=== PATIENT | male | born 1950 | race Caucasian/White ===

== ENCOUNTER 2016-09-23 02:30 | Inpatient (IN) | payer MEDICARE, OTHER ==
[~2016-09-23] VITALS: Ht 185.4 cm; Wt 83.9 kg
[~2016-09-23 02:30] MED LIST: AGGRENOX 200/251 CAP PO; CYCLOBENZAPRINE10 MG PO; DULERA 100 MCG8.8 GM INH; DULERA 200 MCG8.8 GM INH; IPRAT-ALBUT 0.5-3 ML UPD; K-TAB10 MEQ PO; LASIX20 MG PO; LEVAQUIN PREMI750 MG PO; LEVAQUIN750 MG PO; METOPROLOL TART50 MG PO; MOBIC7.5 MG PO; MUCINEX D1 TAB.SR . PO; NORVASC5 MG PO; SINGULAIR10 MG PO; VERAPAMIL ER P200 MG PO; ZESTRIL20 MG PO
[2016-09-23 02:58] LABS: BASOPHILS 0.1 % (0.0-2.0); EOSINOPHILS 0.5 % (0-7); HEMATOCRIT 37.9 % (42.0-54.0); HEMOGLOBIN 12.4 g/dL (13.5-17.5); IMMATURE GRANULOCYTES 0.4 % (0-5); LYMPHOCYTES 14.2 % (15-50); MCH 32.2 pg (26.0-34.0); MCHC 32.7 g/dL (31.0-37.0); MCV 98.4 fL (80.0-100.0); MEAN PLATELET VOLUME 11.9 fL (7.4-10.4); MONOCYTES 12.8 % (2-11); RBC 3.85 10x6/uL (4.20-6.10); WBC 11.8 10x3/uL (4.8-10.8)
[2016-09-23 03:04] LABS: PLATELET COUNT 185 10x3/uL (130-400)
[2016-09-23 03:10] LABS: ALKALINE PHOSPHATASE 95 U/L (46-116); ALT (SGPT) 30 U/L (10-68); BILIRUBIN - TOTAL 0.47 mg/dL (0.2-1.3); CALC OSMOLALITY 278 mosm/kg (275-300); CALCIUM 9.7 mg/dL (8.5-10.1); CARBON DIOXIDE 28.8 mmol/L (21.0-32.0); CHLORIDE - SERUM 101 mmol/L (98-107); CREATININE - SERUM 1.1 mg/dL (0.6-1.3); GLUCOSE 139 mg/dL (74-106); POTASSIUM - SERUM 3.7 mmol/L (3.5-5.1); SODIUM 139 mmol/L (136-145); UREA NITROGEN 10 mg/dL (7-18); eGFR NON AFRICAN AMERICAN 71 mL/min (90-120)
[2016-09-23 03:14] LABS: AMYLASE - SERUM 25 U/L (25-115); CREATINE KINASE 30 UL (21-232); LIPASE 74 U/L (73-393)
[2016-09-23 03:17] LABS: TROPONIN-I < 0.017 ng/mL (0.000-0.060)
--- NOTE | 2016-09-23 07:49 | NUR ---
PT REPORT REC'D FROM KRISTAL DOLAN, IN ER. ROOM READY AND AWAITING PT ARRIVAL.
--- NOTE | 2016-09-23 08:00 | NUR ---
PT REC'D TO ROOM VIA WC, ACCOMPANIED BY STAFF, ABLE TO AMBULATE AROUND ROOM W/O ASSISTANCE. AAOX4. CURRENTLY ON 2L O2 VIA NC. STATES HE WEARS O2 AT HOME PRN. O2 SAT 97%. LUNG SOUNDS CLEAR AND EQUAL BILATERALLY. ABD DISTENDED, BOWEL SOUNDS HYPOACTIVE, FIRM TO PALPATION, AND GUARDING UPON PALPATION. RATING CURRENT PAIN IN ABD 10/10. 1MG IV DILAUDID Q4HR ORDERED AND WILL ADMINISTER. BED LOW, CALL LIGHT IN REACH, DENIES NEEDS.
--- NOTE | 2016-09-23 08:45 | NUR ---
PT CALLING OUT IN PAIN. RATING CURRENT PAIN IN ABD /. 1MG IV DILAUDID ADMINISTERED PER PAIN. WILL REASSESS. PT FLUSHED, SWEATING, AND ABD HARD. PT UP WALKING AROUND ROOM. INSTRUCTED PT TO SIT DOWN AND TAKE SLOW DEEP BREATHES. PT ABLE TO FOLLOW. COMMANDS. IN ROOM. BED LOW, CALL LIGHT IN REACH, WILL REASSESS.
[2016-09-23 09:30] VITALS: BP 167/81
--- NOTE | 2016-09-23 10:46 | NUR ---
ALERTED BY THAT PT IS, "STARTING TO HURT AGAIN AND IS ABOUT TO START SCREAMING AGAIN." EXPLAINED TO PT THAT PT CAN ONLY HAVE PAIN MEDICINE ORDERED Q4HR AND HE COULD HAVE IT AGAIN AT 1245. TOLD THAT I WOULD ALSO TRY TO KEEP IT CLOSE TO EVERY 4 HOURS POSSIBLE.
[2016-09-23 11:48] VITALS: BP 167/81; Ht 185.4 cm; Wt 83.9 kg
[2016-09-23 12:42] VITALS: BP 141/66
--- NOTE | 2016-09-23 12:57 | NUR ---
MORNING MEDS CONT BY DR. BOLANOS. CONT MEDS PASSED AT THIS TIME. 1 MG IV DILAUDID ADMINISTERED PER 06/12 ABD PAIN. IV ZOSYN HUNG AT THIS TIME. PUT UP IN CHAIR AT BEDSIDE. WILL REASSESS. CPOC.
[2016-09-23 17:03] VITALS: BP 142/69
[2016-09-23 20:00] VITALS: BP 147/71
--- NOTE | 2016-09-23 20:15 | NUR ---
PATIENT VERY AGITATIED. ATTEMPTING TO TAKE OUT IV AND GO HOME. CONFUSED. DISORIENTED TO TIME AND SITUATION. ATTEMPTS TO REORIENT UNSUCCESSFUL. PRN ATIVAN GIVEN. PATIENT ASSISTED TO BED. GAUDENCIO MAT ON. AT BEDSIDE. BED LOW. CALL LIGHT IN REACH.
--- NOTE | 2016-09-23 22:00 | NUR ---
PATIENT CONFUSED AND TRYING TO CLIMB OUT OF BED WITHOUT ASSISTANCE. PATIENT PUT BACK TO BED ON A GAUDENCIO ALARM BY ISAIAS.
[2016-09-24] VITALS: BP 124/63
[2016-09-24 04:00] VITALS: BP 140/69
[2016-09-24 06:24] LABS: BASOPHILS 0.4 % (0.0-2.0); EOSINOPHILS 0.4 % (0-7); HEMATOCRIT 31.5 % (42.0-54.0); HEMOGLOBIN 10.3 g/dL (13.5-17.5); IMMATURE GRANULOCYTES 0.5 % (0-5); LYMPHOCYTES 5.9 % (15-50); MCH 31.5 pg (26.0-34.0); MCHC 32.7 g/dL (31.0-37.0); MEAN PLATELET VOLUME 10.7 fL (7.4-10.4); MONOCYTES 6.9 % (2-11); NEUTROPHILS 85.9 % (40-80); PLATELET COUNT 180 10x3/uL (130-400); RBC 3.27 10x6/uL (4.20-6.10); WBC 9.6 10x3/uL (4.8-10.8)
[2016-09-24 06:27] LABS: MCV 96.3 fL (80.0-100.0)
[2016-09-24 06:52] LABS: ANION GAP 14.1 mmol/L (8-16); BILIRUBIN - TOTAL 0.8 mg/dL (0.2-1.3); CALCIUM 8.4 mg/dL (8.5-10.1); CARBON DIOXIDE 24.9 mmol/L (21.0-32.0); CREATININE - SERUM 1.2 mg/dL (0.6-1.3); PROTEIN - SERUM 6.2 g/dL (6.4-8.2)
[2016-09-24 06:53] LABS: ALBUMIN 2.1 g/dL (3.4-5.0)
--- NOTE | 2016-09-24 07:38 | NUR ---
PATIENT IS SITTING UP ON THE SIDE OF BED WITH HIS AT THE BEDSIDE. PATIENT IS AWAKE, ALERT, AND DISORIENTED TO PLACE AND SITUATION. GAUDENCIO MAT ALARM IN PLACE. VERBALIZED TO PATIENT AND PATIENT'S THAT HE IS A FALL RISK AND THAT THE GAUDENCIO MAT IS FOR HIS PATIENT SAFETY. PATIENT AND VERBALIZED UNDERSTANDING. PATIENT DENIES ANY NEEDS AT PRESENT TIME. CALL LIGHT IN REACH. WILL MONITOR.
--- NOTE | 2016-09-24 08:14 | NUR ---
PATIENT SITTING UP ON SIDE OF THE BED. WITH PATIENT. ASSESSMENT COMPLETED PER FLOWSHEET. PATIENT IS AWAKE, ALERT, AND ORIENTED TO HIS NAME AND BIRTHDATE BUT HE IS DISORIENTED TO PLACE, TIME, AND SITUATION. COMPLAINS OF PAIN IN HIS ABDOMEN. PATIENT RATES PAIN LEVEL AN "8" ON A 0-10 SCALE. PATIENT'S ABDOMEN IS FIRM AND DISTENDED AND VERY TENDER TO TOUCH. SCHEDULED MORNING MEDICATIONS GIVEN TO PATIENT. PATIENT TOLERATED WELL. PATIENT DENIES ANY NEEDS AT PRESENT TIME. CALL LIGHT IN PATIENT'S REACH. GAUDENCIO MAT IN PLACE. WILL MONITOR PATIENT.
[2016-09-24 08:25] VITALS: BP 155/79
[2016-09-24 12:48] VITALS: BP 145/68
[2016-09-24 16:24] VITALS: BP 141/70
[2016-09-24 19:00] VITALS: BP 132/69
--- NOTE | 2016-09-24 19:25 | NUR ---
RECIEVED SHIFT REPORT. PT IS LYING IN BED. ALERT AND ORIENTED AND ABLE TO VERBALIZE NEEDS. IV IS PATENT AND FLUIDS ARE RUNNING PER ORDER. O2 @ 2 PER NASAL CANNULA. PT IS AMBULATORY WITH ASSISTANCE. PT STATES PAIN IS 9/10. NO NEEDS ARE VERBALIZED AT THIS TIME. WILL CONTINUE TO MONITOR. SIDE RAILS ARE UPX 2. BED IS IN LOWEST POSITION. GAUDENCIO ON FOR SAFETY. CALL LIGHT IS WITHIN REACH.
--- NOTE | 2016-09-24 21:07 | NUR ---
SHIFT ASSESSMENT COMPLETED. NIGHT MEDS GIVEN WITH NO PROBLEMS. NO NEEDS ARE VOICED. WILL MONITOR. SIDE RAILS X 2. BED LOW. GAUDENCIO ON. CALL LIGHT IN REACH.
[2016-09-25] VITALS: BP 130/62
[2016-09-25 04:00] VITALS: BP 141/79
[2016-09-25 05:44] LABS: BASOPHILS 0.2 % (0.0-2.0); EOSINOPHILS 0.8 % (0-7); HEMATOCRIT 32.5 % (42.0-54.0); HEMOGLOBIN 10.5 g/dL (13.5-17.5); IMMATURE GRANULOCYTES 1.1 % (0-5); LYMPHOCYTES 6.3 % (15-50); MCH 31.3 pg (26.0-34.0); MCHC 32.3 g/dL (31.0-37.0); MONOCYTES 7.6 % (2-11); RBC 3.35 10x6/uL (4.20-6.10); RDW 13.3 % (11.5-14.5)
[2016-09-25 06:11] LABS: PLATELET COUNT 228 10x3/uL (130-400); WBC 12.3 10x3/uL (4.8-10.8)
[2016-09-25 06:35] LABS: ALBUMIN 1.9 g/dL (3.4-5.0); ANION GAP 12.8 mmol/L (8-16); BILIRUBIN - TOTAL 0.8 mg/dL (0.2-1.3); CALCIUM 8.2 mg/dL (8.5-10.1); CARBON DIOXIDE 25.9 mmol/L (21.0-32.0); CREATININE - SERUM 1.2 mg/dL (0.6-1.3); POTASSIUM - SERUM 3.7 mmol/L (3.5-5.1); PROTEIN - SERUM 6.3 g/dL (6.4-8.2)
--- NOTE | 2016-09-25 07:53 | NUR ---
GAVE PATIENT A URINAL FOR A URINE SAMPLE. PATIENT STATED HE JUST URINATED SO DOES NOT KNOW WHEN HE WILL GO AGAIN. EXPLAINED TO USE URINAL NEXT TIME URINATE AND PUSH CALL LIGHT.
[2016-09-25 08:47] VITALS: BP 143/67
[2016-09-25 12:38] VITALS: BP 149/67
--- NOTE | 2016-09-25 16:17 | NUR ---
Patient Name: ALISHA GIRON Admission Status: ER Accout number: [id number] Admission Date: 09-23-2016 : 1950 Admission Diagnosis: Attending: FILIBERTO Current LOS: 2 Anticipated DC Date: 09-25-2016 Planned Disposition: Home Primary Insurance: MEDICARE A & B Discharge Planning Comments: CM MET WITH PATIENT AND SPOUSE (XIOMARA) REGARDING D/C PLANS AND NEEDS. PATIENT HAS 2 STEPS W/O RAILS AND NO STAIRS INSIDE. PATIENT IS INDEPENDENT WITH HIS CARE AND HAS ONLY A CANE AT HOME. PATIENTS PCP IS DR. WOODARD AND PHARMACY IS [facility]. PATIENT HAS DENIED HOME HEALTH OR ANY NEEDS FOR DISCHARGE. PATIENTS IS DRIVING HIM HOME TODAY. CM WILL CONTINUE TO FOLLOW PATIENT WITH D/C NEEDS AND PLANS. PCP DR. WOODARD [facility] [phone] XIOM[place] () [phone] Passenger Service Agent: Bev Wilkins
--- NOTE | 2016-09-25 16:18 | NUR ---
Is the patient Alert and Oriented? Yes 0 * How many steps to enter\exit or inside your home? 2 W/O RAIL 0 * PCP DR. WOODARD 0 * Pharmacy [facility] 0 * Preadmission Environment Home with Family 0 * ADLs Independent 0 * Equipment Cane 0 * List name and contact numbers for known caregivers / representatives who currently or will assist patient after discharge: XIOMARA [phone] * Community resources currently utilized None 0 * Additional services required to return to the preadmission environment? Yes 0 * Can the patient safely return to the preadmission environment? Yes 0 * Has this patient been hospitalized within the prior 30 days at any hospital? No 0 Grand Total: 0
[2016-09-25 17:13] VITALS: BP 147/67
[2016-09-25 19:00] VITALS: BP 126/66
--- NOTE | 2016-09-25 19:35 | NUR ---
RECIEVED SHIFT REPORT. PT IS LYING IN BED. ALERT AND ORIENTED AND ABLE TO VERBALIZE NEEDS. IV IS PATENT AND FLUIDS ARE RUNNING PER ORDER. O2 @ 2 PER NASAL CANNULA. PT IS AMBULATORY BUT WAS INSTRUCTED TO CALL FOR ANY ASSISTANCE NEEDED. PT STATES PAIN IS 9/10. NO NEEDS ARE VERBALIZED AT THIS TIME. WILL CONTINUE TO MONITOR. SIDE RAILS ARE UP X 2. BED IS IN LOWEST POSITION. CALL LIGHT IS WITHIN REACH.
--- NOTE | 2016-09-25 21:59 | NUR ---
SHIFT ASSESSMENT COMPLETED. NIGHT MEDS GIVEN WITH NO PROBLEMS. PT C/O PAIN 05/13. ADMINISTERED PRESCRIBED PRN DILAUDID PER ORDER. DENIES FURTHER NEEDS. WILL MONITOR. SIDE RAILS X 2. BED LOW. CALL LIGHT IN REACH.
--- NOTE | 2016-09-25 22:15 | NUR ---
PT STATES HE STILL IS HAVING THE URGE TO HAVE A BOWEL MOVEMENT AND STILL FELLS A BUNCH OF PRESSURE. PT REQUESTING IN CALL MD TRAVEL REGISTERED NURSE ONCOLOGY TO ASK FOR ORDER FOR ENEMA OR SUPPOSITORY. WILL CALL MD ON RAY.
--- NOTE | 2016-09-25 22:20 | NUR ---
CALL RECIEVED BACK FROM MD LINE LOCATOR AND NEW ORDERS RECIEVED.
[2016-09-26] VITALS (12 sets, daily range): BP systolic 118–155; BP diastolic 57–80
[2016-09-26 05:51] LABS: BASOPHILS 0.4 % (0.0-2.0); EOSINOPHILS 1.5 % (0-7); HEMATOCRIT 33.6 % (42.0-54.0); HEMOGLOBIN 10.9 g/dL (13.5-17.5); IMMATURE GRANULOCYTES 1.8 % (0-5); LYMPHOCYTES 7.1 % (15-50); MCH 31.5 pg (26.0-34.0); MCHC 32.4 g/dL (31.0-37.0); MCV 97.1 fL (80.0-100.0); MEAN PLATELET VOLUME 11.4 fL (7.4-10.4); MONOCYTES 10.2 % (2-11); PLATELET COUNT 296 10x3/uL (130-400); RBC 3.46 10x6/uL (4.20-6.10); RDW 13.4 % (11.5-14.5); WBC 14.6 10x3/uL (4.8-10.8)
[2016-09-26 06:02] LABS: ANION GAP 13.2 mmol/L (8-16); CALCIUM 8.5 mg/dL (8.5-10.1); CARBON DIOXIDE 26.4 mmol/L (21.0-32.0); CREATININE - SERUM 1.1 mg/dL (0.6-1.3); POTASSIUM - SERUM 3.6 mmol/L (3.5-5.1)
--- NOTE | 2016-09-26 10:25 | NUR ---
LARGE AREAS OF MACULAR RASH-LIKE REDNESS TO CHEST AND ABDOMEN
--- NOTE | 2016-09-26 11:22 | NUR ---
EMPTIED 140ML FROM DAYANA DRAIN TO RIGHT FLANK
--- NOTE | 2016-09-26 12:50 | NUR ---
PATIENT AROUSED, HOLDING HANDS IN THE AIR GRABBING. PATIENT GRABBED WIFES HANDS AND ARMS, HE GRABBED 'S WRIST AND SQUEEZED HARD, CAUSING PAIN TO . AND MYSELF TRIED TO GET PATIENT TO LET GO, HE KEPT SQUEEZING, ALERTING MORE STAFF FOR HELP. THEY WERE ABLE TO GET HIM TO LET GO. PATIENT WOULD NOT TALK, ANSWER QUESTIONS, OR FOLLOW COMMAND. ANOTHER NURSE AND PATIENT'S WERE ABLE TO TALK TO PATIENT AND GET HIM TO CALM DOWN. PATIENT STARTED TALKING, DISORIENTED. PATIENT STATED HE DID NOT KNOW WHO HIS IS.
--- NOTE | 2016-09-26 13:06 | NUR ---
PATIENT NOW CALM AND DROWSY. IS AT BEDSIDE. BED ALARM ON. WILL CONTINUE TO MONITOR. KRISTAL MOSHER FROM PACU CAME OVER TO GIVE VERSED, I TOLD HER HE IS NOW CALM SO NOT TO ADMINISTER AT THIS TIME.
--- NOTE | 2016-09-26 13:14 | NUR ---
ENCOURAGED TO STAY WITH PATIENT AND NOT STIMULATE.
--- NOTE | 2016-09-26 13:46 | OP ---
PATIENT NAME: ALISHA GIRON MEDICAL RECORD: [id number] :[birth year] LOCATION:[id number] ADMISSION DATE:09/23/16 SURGEON: CALI BOLANOS MD DATE OF OPERATION: 09/26/2016 PREOPERATIVE DIAGNOSES: 1. Acute cholecystitis. 2. Fibromyalgia. 3. Emphysema. 4. Obstructive sleep apnea. 5. Degenerative disc disease. 6. Tobacco dependence syndrome. 7. Hypertension. POSTOPERATIVE DIAGNOSES: 1. Acute cholecystitis. 2. Fibromyalgia. 3. Emphysema. 4. Obstructive sleep apnea. 5. Degenerative disc disease. 6. Tobacco dependence syndrome. 7. Hypertension. 8. Bile peritonitis surgery. PROCEDURE: Laparoscopic cholecystectomy with abdominal washout. SURGEON: Cali Bolanos MD REPORT OF PROCEDURE: The patient's abdomen was prepped and draped in sterile fashion. A cutdown was made on the superior aspect of the umbilicus and electrocautery was used to dissect through the subcutaneous tissues, 0 Vicryls were placed in the fascia bilaterally and the fascia was incised with a 15 blade. There was immediately a spillage of bilious material from the abdominal cavity. A 12-mm Ketan was then inserted and the abdomen was insufflated. Under direct visualization, a 5 mm trocar was placed in the epigastrium. Using this, I was able to take down some inflammatory adhesions on the right side of the abdomen; there was a large amount of bilious material present in the right pericolic gutter and extending down in the pelvis. I tried to irrigate it out as much of this as I could. This extended over the patient's liver and to the right subphrenic space. Once I had this freed up, then 2 more 5-mm trocars were placed in the right subcostal region. It was difficult to dissect out the gallbladder did a large amount of inflammatory tissue, so a fourth 5-mm trocar was placed in the right lateral subcostal region. With this, I was able to dissect out the patient's gallbladder and could immediately see on the fundus of the gallbladder where there was necrotic area where the perforation had occurred. The patient had no stones visible and this appeared to be more of an acute acalculous cholecystitis. The cystic artery and cystic duct were eventually dissected free and these were clipped proximally and distally and ligated in standard fashion. The gallbladder was taken off the liver bed using electrocautery and placed into an Endo Catch bag. Any bleeding from the liver bed was then treated with electrocautery. At this point, we did some more vigorous irrigation into the patient's abdomen, especially in the pelvis and right pericolic gutter. We tried to remove any bilious contents that were visible. There was some fibrinous exudate throughout the abdomen, which was removed as much as could be done. At the conclusion of the case, a 15-Frisian OPERATIVE REPORT [id number] ALISHA GIRON drain was inserted in the abdomen through the most lateral right subcostal incision site. This was placed in the gallbladder fossa at the base of the liver bed. At this point, this was sutured into place with a 2-0 nylon. The ports and insufflation were then removed and the gallbladder was taken out through the umbilicus. The umbilical fascia was closed with interrupted 0 Vicryls times 4. The wounds were irrigated out with normal saline and infused with 10 mL of 0.25% Marcaine with epinephrine. The skin incisions were all closed with subcutaneous 5-0 Monocryl and dressed appropriately. COMPLICATIONS: None. CONDITION: Stable. ANESTHESIA: General endotracheal and local. BLOOD LOSS: 50 mL. TRANSINT:[id number] Voice Confirmation ID: [id number] DOCUMENT ID: [id number] CALI BOLANOS MD at 1346 CC: GREGORY WOODARD MD [id number] DICTATION DATE: 09/26/16 1059 DATA EXAMINATION CLERK: 09/26/16 1118 ADM IN [facility] [address] [place] [address]
--- NOTE | 2016-09-26 14:11 | NUR ---
NUTRITION MONITORING & EVAL PT S/P SURGERY. CLEAR LIQUID DIET STARTED. WILL MONITOR DIET ADVANCEMENT, PROGRESS. RD FOLLOWING
--- NOTE | 2016-09-26 15:00 | NUR ---
WIFED YELLED FOR HELP, RAN TO ROOM, PATIENT STOOD UP OUT OF BED. ASKED PATIENT TO GET BACK IN BED, PATIENT STATED "NO!" PATIENT HELD DAYANA DRAIN IN HAND A SWUNG IT AROUND TRYING TO HIT STAFF. CALLED KRISTAL MOSHER IN PACU AND ASKED IF SHE COULD ADMINISTER VERSED. SHE STATED YES. PATIENT STATED "I NEED TO PEE." GAVE PATIENT A URINAL. HE VOIDED.
--- NOTE | 2016-09-26 15:21 | NUR ---
PATIENT NOW RESTING QUIETLY WITH EYES CLOSED.
--- NOTE | 2016-09-26 19:07 | NUR ---
PATIENT RESTING QUIETLY WITH EYES CLOSED. NO SIGNS OF DISTRESS NOTED. PATIENT IS WEARING OXYGEN VIA NASAL CANNULA AT 2L/MIN.
[2016-09-27] VITALS: BP 132/48
--- NOTE | 2016-09-27 00:08 | NUR ---
RESTING EYES CLOSED, RESP WITH EASE, AT BEDSIDE, CL IN REACH
[2016-09-27 04:00] VITALS: BP 241/67
[2016-09-27 06:50] LABS: BASOPHILS 0.6 % (0.0-2.0); EOSINOPHILS 0.1 % (0-7); HEMOGLOBIN 10.5 g/dL (13.5-17.5); IMMATURE GRANULOCYTES 5.3 % (0-5); MCH 30.8 pg (26.0-34.0); MCHC 31.8 g/dL (31.0-37.0); MCV 96.8 fL (80.0-100.0); MONOCYTES 7.7 % (2-11); NEUTROPHILS 79.3 % (40-80); PLATELET COUNT 260 10x3/uL (130-400); RBC 3.41 10x6/uL (4.20-6.10); RDW 13.6 % (11.5-14.5); WBC 13.5 10x3/uL (4.8-10.8)
[2016-09-27 07:08] LABS: ALBUMIN 1.8 g/dL (3.4-5.0); ANION GAP 10.1 mmol/L (8-16); BILIRUBIN - TOTAL 0.5 mg/dL (0.2-1.3); CALCIUM 8.4 mg/dL (8.5-10.1); CARBON DIOXIDE 28.4 mmol/L (21.0-32.0); CREATININE - SERUM 1.1 mg/dL (0.6-1.3); POTASSIUM - SERUM 3.5 mmol/L (3.5-5.1); PROTEIN - SERUM 6.3 g/dL (6.4-8.2)
--- NOTE | 2016-09-27 07:30 | NUR ---
REPORT RECEIVED FROM PIPELINES MANAGER NURSE. CALL LIGHT IN REACH.
[2016-09-27 08:33] VITALS: BP 143/65
--- NOTE | 2016-09-27 08:55 | NUR ---
Resting quietly in bed, eating liquid diet. Some abdominal discomfort, abdomen distended. Drain in place in small amount drainage, abdominal dressings dry and intact. Will ambulate with patient this am. Shaina Azevedo RN
--- NOTE | 2016-09-27 10:32 | NUR ---
ASSESSMENT COMPLETED. AM MEDS ADMINISTERED. DILAUDID ANGLE SHEAR OPERATOR INITIATED. REFUSES SCDs. CALL LIGHT IN REACH. WILL CONTINUE WITH PLAN OF CARE.
--- NOTE | 2016-09-27 10:38 | NUR ---
IV TUBING CHANGED PER HOSPITAL PROTOCOL.
[2016-09-27 11:55] VITALS: BP 140/60
--- NOTE | 2016-09-27 12:30 | NUR ---
DENIES NEEDS AT THIS TIME. CALL LIGHT IN REACH.
--- NOTE | 2016-09-27 13:45 | NUR ---
TORADOL 30 MG SIVP PER ORDER. CALL LIGHT IN REACH.
--- NOTE | 2016-09-27 15:00 | NUR ---
AMBULATED IN HALLWAY WITH PT. TOLERATED WELL.
[2016-09-27 16:53] VITALS: BP 141/66
--- NOTE | 2016-09-27 17:30 | NUR ---
NO DISTRESS NOTED. CALL LIGHT IN REACH.
--- NOTE | 2016-09-27 18:14 | NUR ---
NO CHANGES IN INITIAL ASSESSMENT. CALL LIGHT IN REACH. WILL CONTINUE WITH PLAN OF CARE.
[2016-09-27 19:00] VITALS: BP 138/65
--- NOTE | 2016-09-27 20:36 | NUR ---
PATIENT RESTING IN BED WATCHING TV. ALERT AND ORIENTED. NO SIGNS OF DISTRESS NOTED. SCHEDULED MEDICATIONS GIVEN ORDERED. DENIES ANY NEEDS AT THIS TIME. BED LOW. CALL LIGHT IN REACH.
[2016-09-28] VITALS: BP 134/65
[2016-09-28 04:00] VITALS: BP 163/59
--- NOTE | 2016-09-28 04:37 | NUR ---
PT IS UP TO THE BATHROOM AD TEJAS AND THE NURSE IS AT THE BEDSIDE. NO DISTRESS NOTED AND THE BED IS LOW, RAILS UP X'S 2 WITH THE CALL LIGHT AT HAND.
[2016-09-28 06:20] LABS: ALBUMIN 1.7 g/dL (3.4-5.0); ALKALINE PHOSPHATASE 87 U/L (46-116); ALT (SGPT) 64 U/L (10-68); BILIRUBIN - TOTAL 0.34 mg/dL (0.2-1.3); CALC OSMOLALITY 283 mosm/kg (275-300); CALCIUM 8.1 mg/dL (8.5-10.1); CARBON DIOXIDE 26.8 mmol/L (21.0-32.0); CHLORIDE - SERUM 106 mmol/L (98-107); CREATININE - SERUM 0.9 mg/dL (0.6-1.3); GLUCOSE 101 mg/dL (74-106); POTASSIUM - SERUM 3.7 mmol/L (3.5-5.1); SODIUM 142 mmol/L (136-145); UREA NITROGEN 16 mg/dL (7-18); eGFR NON AFRICAN AMERICAN 90 mL/min (90-120)
[2016-09-28 06:23] LABS: BASOPHILS 0.6 % (0.0-2.0); EOSINOPHILS 0.7 % (0-7); HEMATOCRIT 29.3 % (42.0-54.0); HEMOGLOBIN 9.3 g/dL (13.5-17.5); LYMPHOCYTES 13.8 % (15-50); MCH 30.8 pg (26.0-34.0); MCHC 31.7 g/dL (31.0-37.0); MEAN PLATELET VOLUME 11.4 fL (7.4-10.4); MONOCYTES 10.3 % (2-11); NEUTROPHILS 66.6 % (40-80); PLATELET COUNT 248 10x3/uL (130-400); RBC 3.02 10x6/uL (4.20-6.10); RDW 13.7 % (11.5-14.5); WBC 12.1 10x3/uL (4.8-10.8)
[2016-09-28 08:04] VITALS: BP 151/62
--- NOTE | 2016-09-28 08:04 | NUR ---
PT ASSESSMENT COMPLETE AWAKE AND ALERT ORINETED X 3 LUNGS CLEAR BILATERALLY NO ACUTE DISTRESS NOTED VOICES ALL NEEDS TO STAFF PIV INFUSING PER ORDER HAS LAP SITES X 4 TO ABDOMEN NO REDNESS NOTED AMBULATES ADLIB DILAUDID ELECTRONICS TEACHER FOR PAIN CONTROL WILL MONITOR
--- NOTE | 2016-09-28 09:59 | NUR ---
TOOK AM MEDS WITH NO DIFFICULTY NOTED. ENCOURAGED PT TO AMBULATE IN ROOM AND HALLWAYS TO MOVE GAS ABDOMEN TENDER TO PALPATION. DRESSINGS CLEAN X 4 TO LOWER ABDOMEN
--- NOTE | 2016-09-28 10:55 | NUR ---
UP AT BEDSIDE AT THIS TIME. DAYANA DRAIN AND IV PATENT. PT ALERT AND ORIENTED X4. UP WITHOUT ASSIST. USES URINAL TO VOID. SCD'S OFF AT THIS TIME. CALL LIGHT IN REACH, WILL CONTINUE WITH PLAN OF CARE.
--- NOTE | 2016-09-28 11:17 | NUR ---
DRESSING CHANGED TO DAYANA DRAIN SITE.
[2016-09-28 11:43] VITALS: BP 139/53
--- NOTE | 2016-09-28 13:37 | NUR ---
DRESSING CHANGED TO SITE DR BOLANOS IN ROOM NEW ORDERS TO STOP UNDERWRITING SPECIALIST AND SALINE LOCK IV. EMPTIED 140 ML OF SEROSANGUANOUS DRAINAGE FROM DAYANA DRAIN.
[2016-09-28 16:56] VITALS: BP 133/62
[2016-09-28 20:00] VITALS: BP 142/60
[2016-09-29 02:00] VITALS: BP 144/59
[2016-09-29 04:00] VITALS: BP 150/65
--- NOTE | 2016-09-29 08:00 | NUR ---
PT ASSESSMENT COMPLETE NO ACUTE DISTRESS NOTED PT AWAKE AND ALERT ORIENTED X 3 LUNGS CLEAR WITH DIMINISHED BASES NOTED. DAYANA DRAIN NOTED TO RUQ ABDOMEN SOME DISTENTION NOTED TO ABDOMEN WITH TENDERNESS TO PALPATION HAS ACTIVE BOWEL SOUNDS. ENCOURAGED TO AMBULATE AND PASS GAS FOR COMFORT. SL NOTED TO R UPPER ARM
[2016-09-29 08:34] VITALS: BP 154/59
[2016-09-29] MEDS ORDERED: HYDROCODONE-APA1 TAB PO (09:34)
--- NOTE | 2016-09-29 11:00 | NUR ---
HOPEFUL FOR D/C TODAY. DAYANA DRAIN REMAINS PATENT. AT BEDSIDE. ALERT AND ORIENTED X4, CALL LIGHT IN REACH. WILL CONTINUE WITH PLAN OF CARE.
--- NOTE | 2016-09-29 12:16 | NUR ---
DAYANA DRAIN PULLED PER DR BOLANOS ORDER TOLERATED WELL HAD 40 CC SEROSANGUANOUS FLUID IN BULB. COVERED DRAIN SITE WITH GAUZE AND TEGADERM WILL MONITOR PT HAS ORDERS FOR DISCHARGE.
--- NOTE | 2016-09-29 13:58 | NUR ---
Patient Name: ALISHA GIRON Encounter No: [id number] : 1950 Primary Insurance: MEDICARE PART A ONLY Anticipated DC Date: 09-25-2016 Planned Disposition: Home External Planned Provider: : DCP follow-up note: CM revisited with patient and spouse at bedside to discuss discharge planning/needs. Both patient and spouse voiced concern regarding home oxygen and decreasing saturations while patient on exertion. RT currently evaluating patient for home O2. The patient denies the need for additional DME services. Patient's spouse requests home health to "Keep check on him for a little while". CM educated patient and spouse on AUREA-AUREA list given. AUREA signed and placed on patient's chart. CM spoke with "Naomi" at [facility] ([phone]) and referral faxed via [employer]. CM spoke with "Clifton" at [facility] ([phone]) and orders faxed for home oxygen as ordered. [facility] will bring portable oxygen tank to patient's room this afternoon prior to discharge home. CM to follow and assist with discharge planning/needs. Lavonne Gillette RN/CM
--- NOTE | 2016-09-29 14:01 | NUR ---
DC TO HOME PIV D/CD TIP INTACT DISCHARGE INSTRUCTIONS GIVEN
--- NOTE | 2016-11-02 13:01 | DS ---
PATIENT:ALISHA GIRON :[birth year] MEDICAL RECORD: [id number] DISCHARGE SUMMARY ADMISSION DATE: 09/23/16 DISCHARGE DATE: 09/29/16 DATE OF ADMISSION: 09/23/2016 DATE OF DISCHARGE: 09/29/2016 ADMISSION DIAGNOSES: 1. Acute cholecystitis. 2. Hypertension. 3. Chronic obstructive pulmonary disease. 4. Tobacco dependence syndrome. DISCHARGE DIAGNOSES: 1. Acute cholecystitis. 2. Hypertension. 3. Chronic obstructive pulmonary disease. 4. Tobacco dependence syndrome. PROCEDURE: Laparoscopic cholecystectomy on 09/26/2016. CONSULTATIONS: Michael Lora MD REPORT OF HOSPITALIZATION: The patient was admitted to the hospital through the ER with findings of acute cholecystitis. The patient was started on IV antibiotics and allowed the gallbladder to cool over the next couple of days. His abdominal pain did improve significantly over that time and his white count remained elevated. He was taken to the operating room a couple of days later where he underwent a laparoscopic cholecystectomy. At that time, he was found to have mild peritonitis and a small opening in the fundus of the gallbladder where a small area of necrosis was present. We were able to wash out the abdominal cavity and clear out all the bile. Once the patient had the surgery done began to improve slowly over the next couple of days. He had a drain in place, which showed no sign of any bile postoperatively. He was maintained on antibiotics postoperatively. His pain was better controlled. Once his pain was felt to be well controlled and he was tolerating a diet, then he was felt to be stable for discharge home. DISCHARGE INSTRUCTIONS: Return to clinic or call with any questions or concerns, fevers, chills, nausea or vomiting. ACTIVITIES: No heavy lifting or straining for 2 weeks postoperatively. FOLLOWUP: In clinic with me in 2-3 weeks. DISCHARGE MEDICATIONS: Resume home medications with the inclusion of [place] 10. TRANSINT:[id number] Voice Confirmation ID: [id number] DOCUMENT ID: [id number] DISCHARGE SUMMARY REPORT [id number] ALISHA GIRON CHRISTIAN MD at 1301 CC: [id number] DICTATION DATE: 10/31/16 1409 PERCUSSION INSTRUMENT REPAIRER: 11/01/16 0405 DIS IN 09/29/16 [place] [address]
== END 2016-09-29 14:02 | disposition home or self-care (01) | DRG 418 ==
LOC: D.ER 02:30 → D.MS 06:42
PROVIDERS: Family Medicine; ADMIT Surgery
PROC: 0FT44ZZ Resection of Gallbladder, Percutaneous Endoscopic Approach (ICD-10-PCS; principal; 2016-09-26 08:30)
DX: K81.0 Acute cholecystitis (principal); F17.203 Nicotine dependence unspecified, with withdrawal; F10.231 Alcohol dependence with withdrawal delirium; I10 Essential (primary) hypertension; K59.00 Constipation, unspecified; R41.0 Disorientation, unspecified; T42.4X5A Adverse effect of benzodiazepines, initial encounter; J43.9 Emphysema, unspecified; G47.33 Obstructive sleep apnea (adult) (pediatric)

== ENCOUNTER → 2017-10-29 09:37 | Outpatient (CLI) | payer MEDICARE, OTHER ==
[2016-09-23 11:48] VITALS: BMI 24.4
[~2017-10-29 09:37] MED LIST changes: +HYDROCODONE-APA1 TAB PO
== END | disposition home or self-care (01) ==
LOC: D.RT 09:37
DX: J44.9 Chronic obstructive pulmonary disease, unspecified (principal)

== ENCOUNTER 2018-02-11 13:12 | Day surgery (SDC) | payer MEDICARE, OTHER ==
[~2018-02-11] VITALS: Ht 185.4 cm; Wt 88.6 kg
--- NOTE | ~2018-02-11 | OP ---
PATIENT NAME: ALISHA GIRON MEDICAL RECORD: [id number] :[birth year] LOCATION:[facility] ADMISSION DATE: SURGEON: RE TATUM DO DATE OF OPERATION: 02/11/2018 PROCEDURE: Colonoscopy. INDICATION FOR PROCEDURE: Chronic constipation, family history positive for cancer of the GI tract in the patient's brother as well as screening purposes. SCOPE: Olympus video pediatric colonoscope. MEDICATIONS: Propofol 450 mg IV per anesthesia. WITHDRAWAL TIME: 10 minutes. ESTIMATED BLOOD LOSS: None. COMPLICATIONS: None. FINDINGS: Informed consent was given. The patient was made comfortable with the above medication. After reaching an adequate level of sedation by slow IV push, the patient was placed on his left side. A digital rectal examination was performed and was normal. The endoscope was then advanced under direct visualization through the rectum to the cecum, confirmed by the presence of the appendiceal orifice and ileocecal valve. The endoscope was slowly withdrawn and mucosa was carefully examined. The prep quality was good. There were no polyps visualized on today's examination. There were no diverticula or other abnormalities. Retroflexion was performed in the rectum with the appearance of grade I internal hemorrhoids without active bleeding. The endoscope was then withdrawn from the patient. The patient tolerated the procedure well and there were no complications. IMPRESSION: 1. Grade I internal hemorrhoids without active bleeding. 2. Otherwise, normal colonoscopy to cecum. PLAN AND RECOMMENDATIONS: 1. Discharge home when recovery parameters are met. 2. High fiber diet. 3. Continue current medications. 4. Recommend supplementing diet with Metamucil 1-2 tablespoons daily to facilitate more regular bowel movements. 5. If fiber alone is not adequate to improve more regular bowel habits, I recommend adding 1 cap of MiraLax daily. 6. The patient should notify the clinic if constipation does not improve with fiber and/or MiraLax added. 7. I recommend a repeat colonoscopy in 5 years due to strong family history of cancer and cancer of the digestive tract in the patient's brother. TRANSINT:[id number] Voice Confirmation ID: [id number] DOCUMENT ID: [id number] OPERATIVE REPORT [id number] ALISHA GIRON RE TATUM DO at 1212 CC: [id number] DICTATION DATE: 02/11/18 1631 IT SALES EXECUTIVE: 02/11/182001 [facility] SDC 02/11/18 [facility] [address] [place] [id number]
[2018-02-11 13:36] LABS: BASOPHILS 0.1 % (0-2); EOSINOPHILS 0.8 % (0-7); HEMATOCRIT 43.8 % (42.0-54.0); HEMOGLOBIN 14.8 g/dL (13.5-17.5); IMMATURE GRANULOCYTES 0.1 % (0-5); LYMPHOCYTES 27.5 % (15-50); MCH 31.8 pg (26.0-34.0); MCHC 33.8 g/dL (31.0-37.0); MCV 94.2 fL (80.0-100.0); MEAN PLATELET VOLUME 10.3 fL (7.4-10.4); MONOCYTES 9.5 % (2-11); PLATELET COUNT 233 10x3/uL (130-400); RBC 4.65 10x6/uL (4.20-6.10); RDW 13.6 % (11.5-14.5); WBC 7.5 10x3/uL (4.8-10.8)
[2018-02-11 13:53] LABS: ANION GAP 14.9 mmol/L (8-16); CALCIUM 9.7 mg/dL (8.5-10.1); CARBON DIOXIDE 30.6 mmol/L (21.0-32.0); CREATININE - SERUM 1.5 mg/dL (0.6-1.3); POTASSIUM - SERUM 4.5 mmol/L (3.5-5.1)
[2018-02-11 15:06] VITALS: Ht 185.4 cm; Wt 88.6 kg
== END 2018-02-11 17:30 | disposition home or self-care (01) ==
LOC: D.OPS 13:12
PROVIDERS: Anesthesiology
DX: K64.0 First degree hemorrhoids (principal); Z80.0 Family history of malignant neoplasm of digestive organs; K59.09 Other constipation; Z01.812 Encounter for preprocedural laboratory examination

== ENCOUNTER → 2018-08-07 16:59 | Outpatient (CLI) | payer MEDICARE, OTHER ==
[2018-02-11 15:06] VITALS: BMI 25.7
== END | disposition home or self-care (01) ==
LOC: D.RAD 16:59
DX: J44.9 Chronic obstructive pulmonary disease, unspecified (principal)

== ENCOUNTER → 2018-08-15 09:37 | Outpatient (CLI) | payer MEDICARE, OTHER ==
[2018-02-11 15:06] VITALS: BMI 25.7
--- NOTE | ~2018-08-15 | ST ---
PATIENT:ALISHA GIRON MEDICAL RECORD: [id number] SEX: M LOCATION:[facility] ORDER #: ADMISSION DATE: 08/15/18 AGE OF PATIENT: 68 REFERRING PHYSICIAN: INTERPRETING PHYSICIAN: HAN TEJADA MD DATE OF SERVICE: 08/15/2018 PROCEDURE: Nuclear Stress Test INDICATION: Angina, shortness of breath, hypertension, family history of coronary artery disease. PROCEDURE IN DETAIL: The patient was exercised on standard Lexiscan protocol with 33 mCi of sestamibi injected at peak stress. Rest images were done previously with 11 mCi. FINDINGS: Gated SPECT reveals preserved ejection fraction at 57% with good wall motion and thickening and brightening throughout all segments. SPECT imaging Cardiolite was used as myocardial fusion agent. There is homogeneous uptake throughout all segments at rest and stress with no evidence of inducible ischemia or previous infarction. OVERALL IMPRESSION: 1. This is a normal nuclear stress test with no evidence of inducible ischemia or previous infarction. 2. Gated SPECT reveals a preserved ejection fraction at 57%. In this patient with ongoing symptomatology, the current scan does not suggest the presence of hemodynamically significant coronary artery disease. Evaluate noncardiac etiology of chest pain. TRANSINT:[id number] Voice Confirmation ID: [id number] DOCUMENT ID: [id number] HAN TEJADA MD CC: GREGORY WOODARD [id number] DICTATION DATE: 08/16/18 0801 MINE ENVIRONMENTAL ENGINEER: 08/16/[id number] DEP CLI 08/15/18 [facility] [address] [place] [address]
== END | disposition home or self-care (01) ==
LOC: D.HCCARDIO 09:37
DX: I20.9 Angina pectoris, unspecified (principal)

== ENCOUNTER → 2018-09-06 13:24 | Outpatient (CLI) | payer MEDICARE, OTHER ==
[2018-02-11 15:06] VITALS: BMI 25.7
== END | disposition home or self-care (01) ==
LOC: D.CT 13:24
DX: I71.4 Abdominal aortic aneurysm, without rupture (principal)

== ENCOUNTER → 2018-09-17 13:06 | Outpatient (CLI) | payer MEDICARE, OTHER ==
[2018-02-11 15:06] VITALS: BMI 25.7
== END | disposition home or self-care (01) ==
LOC: D.RAD 13:06
DX: J44.9 Chronic obstructive pulmonary disease, unspecified (principal)

== ENCOUNTER 2018-10-23 10:22 | Inpatient (IN) | payer MEDICARE, OTHER ==
[~2018-10-23] VITALS: Ht 185.4 cm; Wt 88.6 kg
[2018-10-23] VITALS (26 sets, daily range): BP systolic 94–137; BP diastolic 45–61; BMI 26.5
--- NOTE | ~2018-10-23 | HEMODYNAMI ---
PATIENT:ALISHA GIRON MEDICAL RECORD: [id number] : 52 [facility] AD[facility] DATE: 10/23/18 Generatedon:10/28/201811:26 Patient name: ALISHA GIRON Patient #: [id number] SSN: DO B: 1950 Date of study: 10/28/2018 Page: Of Hemodynamic Procedure Report Patient Data Patient Demographics Procedure consent was obtained First Name: ALISHA Gender: Male Last Name: MACK : 1950 [facility] Initial: D Age: 68 year(s) Patient #: [id number] Race: Unknown Additional ID: [id number] Contact details [address]: [address] [place] [address] State: [place] City: [place] Zip code: [address] Past Medical History Allergies: No known allergies Admission Admission Data Admission Date: 10/23/2018 Admission Time: 11:38 Room #: 2120 Lab Results Lab Result Date: 10/23/2018 Lab Result Time: 0:00 CBC Name Units Result Min Max Hemoglobin g/dl 12.8 -*(----)-- 13.5 17.5 Procedure Procedure Types Cath Procedure Peripheral Cath Diagnostic Procedure First Dyer Peripheral Procedures Iispc-Nvwgugq-Xek-Off Procedure Description Procedure Date Procedure Date: 10/28/2018 Procedure Start Time: 11:04 Procedure End Time: 11:26 Procedure Staff Name Function Stephen Rock MD Performing Physician Jerry De Los Santos RT Monitor Lydia Weiss RT Scrub Ana Saini RN Nurse Procedure Data Cath Procedure Fluoroscopy Diagnostic fluoroscopy Total fluoroscopy Time: 5.8 time: 5.8 min min Diagnostic fluoroscopy Total fluoroscopy dose: 356 dose: 356 mGy mGy Contrast Material Contrast Material Type Amount (ml) Isovue 300 51 Entry Location Entry Primary Successful Side Size (Fr) Upsize Upsize Entry Closure S uccessful Closure Location 1 (Fr) 2 (Fr) Remarks Device Remarks Femoral Right 5 Fr 6 Fr Exoseal artery Short Femoral Left 6 Fr 6 Fr Exoseal artery Mid-Length Short Estimated blood loss: 10 ml Diagnostic catheters Device Type Used For End Catheter Placement DIAGNOSTIC UF 5Fr Procedure catheter ([id number]) Procedure Complications No complications Procedure Medications Medication Administration Route Dosage Oxygen etCO2 Nasal cannula 3 l/min Lidocaine 2% added to field 20 Heparin Flush Bag added to field 2 bags (1000units/500ml NS) Versed I.V. 1 mg Fentanyl I.V. 100 mcg Versed I.V. 1 mg Fentanyl I.V. 50 mcg Heparin Bolus I.V. 4000 units Hemodynamics Rest Heart Rate: 69 (bpm) Pressure Samples Time Site Value (mmHg) Purpose Heart Use Rate(bpm) 11:03 AO 189/78(122) Snapshot 69 Snapshots Pre Cath Intra NCS Post Cath Vital Signs Time Heart Resp SPO2 etCO2 NIBP (mmHg) Rhythm Pain Sedation Rate (ipm) (%) (mmHg) Status Level (bpm) 10:27:25 69 14 97 32.7 197/93(146) NSR 0 (11) 10(A) , No pain 10:31:54 69 15 97 32.6 194/89(140) NSR 0 (11) 10(A) , No pain 10:36:20 72 14 94 21.2 183/84(123) NSR 0 (11) 10(A) , No pain 10:40:44 70 13 94 30.4 178/83(123) NSR 0 (11) 10(A) , No pain 10:45:08 69 13 94 27.3 175/81(120) NSR 0 (11) 10(A) , No pain 10:49:32 71 13 94 20.5 176/83(120) NSR 0 (11) 10(A) , No pain 10:53:59 68 13 94 23.5 175/78(122) NSR 0 (11) 10(A) , No pain 10:58:25 69 14 93 32.6 176/80(132) NSR 0 (11) 9(A) , No pain 11:02:52 69 10 92 38.7 174/77(120) NSR 0 (11) 9(A) , No pain 11:07:18 69 10 92 40.2 173/80(117) NSR 0 (11) 9(A) , No pain 11:11:42 70 10 92 43.3 168/79(115) NSR 0 (11) 9(A) , No pain 11:16:08 69 10 92 38.7 173/84(126) NSR 0 (11) 10(A) , No pain 11:20:30 70 11 93 37.2 161/78(123) NSR 0 (11) 10(A) , No pain 11:24:30 0 No Cuff NSR 0 (11) 10(A) , No pain Medications Time Medication Route Dose Verified Delivered Reason Notes Effectiveness by by 10:26:47 Oxygen etCO2 3 Stephen Ana used for Nasal l/min Pranav Saini RN procedure cannula 10:26:53 Lidocaine 2% added 20ml Stephen Stephen for local to vial Pranav Rock MD anesthetic field 10:26:58 Heparin Flush added 2 Stephen Stephen used for Bag to bags Pranav Rock MD procedure (1000units/500ml field NS) 10:56:34 Versed I.V. 1 mg Stephen Perez for sedation Pranav Saini RN 10:56:39 Fentanyl I.V. 100 Stephen Perez for sedation mcg Pranav Saini RN 11:00:02 Versed I.V. 1 mg Stephen Perez for sedation Pranav Saini RN 11:00:06 Fentanyl I.V. 50 Stephen Perez for sedation mcg Pranav Saini RN 11:05:23 Heparin Bolus I.V. 4000 Stephen Perez for verif ied units Pranav Saini RN anticoagulation with dr rock Procedure Log Time Note 10:09:29 Ana Saini RN sent for patient. Start room use. 10:09:30 Time tracking: Regular hours (M-F 7:00 - 5:00) 10:09:34 Plan of Care:Hemodynamics will remain stable., Cardiac rhythm will remain stable., Comfort level will be maintained., Respiratory function will remain adequate., Patient/ family verbilizes understanding of procedure., Procedure tolerated without complication., Recovers from procedure without complications.. 10:09:35 Signed procedure consent form obtained from patient. 10:09:37 Diagnostic Cath status Elective 10:16:21 Patient received from Med II to CCL 1 Alert and oriented. Tansferred to table in Supine position. 10:25:03 Warm blankets applied, and chuy hugger turned on for patient comfort. 10:25:04 Correct patient and procedure confirmed by team. 10:25:05 ECG and BP/O2 sat monitors applied to patient. 10:25:07 Vital chart was started 10:26:47 Oxygen 3 l/min etCO2 Nasal cannula was administered by Ana Saini RN; used for procedure; 10:26:53 Lidocaine 2% 20ml vial added to field was administered by Stephen Rock MD; for local anesthetic; 10:26:58 Heparin Flush Bag (1000units/500ml NS) 2 bags added to field was administered by Stephen Rock MD; used for procedure; 10:28:28 Rhythm: sinus rhythm 10:28:29 Full Disclosure recording started 10:28:31 Baseline sample Acquired. 10::44 H&P Date Dictated: 10/27/2018 Within 30 days and on chart., H&P Addendum completed by physician on day of procedure. (MUST COMPLETE FOR ALL OUTPATIENTS). 10:28:45 Pre-procedure instructions explained to patient. 10:28:45 Pre-op teaching completed and patient verbalized understanding. 10:28:49 Family in patients room. 10:28:50 Patient NPO since Midnight. 10:28:51 Is the patient allergic to Iodine/contrast media? No. 10:28:52 Is patient on blood thinner?Yes 10:28:55 ACC The patient was administered the following blood thiners within the last 24 hours: ACCPlavix 10:29:02 Patient diabetic? Yes. 10:29:03 If diabetic: On Metformin? No 10:29:06 Previous problem with sedation/anesthesia? No ? 10:29:07 Snore? Yes 10:29:08 Sleep apnea? No 10:29:10 Deviated septum? No 10:29:10 Opens mouth fully? Yes 10:29:11 Sticks out tongue? Yes 10:29:15 Airway obstruction? Yes COPD 10:29:19 Dentures? No ? 10:29:21 Pre procedure: right dorsailis pedis pulse 1+ Palpable, but thready & weak; easily obliterated 10:29:24 Pre procedure: left dorsailis pedis pulse Doppler 10:29:27 Patient pain scale 0/10 ?. 10:29:32 IV patent on arrival in right forearm with 0.9% NaCl at [facility]. 10:29:34 Lab results completed and on chart. 10::39 Bilateral groins area was prepped with chlora-prep and draped in sterile fashion 10::40 Alarms reviewed by R. N. ::41 Sharps counted by scrub and verified by R.N. :55:31 --------ALL STOP TIME OUT------ ::31 Final Timeout: patient, procedure, and site verified with staff and physician. All members of the team are in agreement. 10:55:34 Bilateral groins site verified by team. ::39 Fire Safety Assessment: A--An alcohol-based skin anteseptic being used preoperatively., C--Open oxygen or nitrous oxide is being used., D--An ESU, laser, or fiber-optic light is being used. 10:55:42 Physical assessment completed. ASA score P 2 - A patient with mild systemic disease as per Stephen Rock MD. 10:55:45 Sedation plan: IV Moderate Sedation Medication:Versed, Fentanyl 10:56:34 Versed 1 mg I.V. was administered by Ana Saini RN; for sedation; 10:56:39 Fentanyl 100 mcg I.V. was administered by Ana Saini RN; for sedation; 10:58:13 Use device set Femoral Dx 10:58:21 ACIST Syringe (22897) opened to sterile field. 10:58:21 Bag Decanter (2002S) opened to sterile field. 10:58:22 Medline Cath Pack ([id number]) opened to sterile field. 10:58:24 ACIST Hand Control (00636) opened to sterile field. 10:58:25 Tegaderm 4 x 4 (1626W) opened to sterile field. 10:58:26 ACIST Manifold (61889) opened to sterile field. 10:58:28 DIAGNOSTIC WIRE .035 260cm J wire (777980) opened to sterile field. 10:58:37 SHEATH 5FR [place] (FNT588) opened to sterile field. 10:58:44 Procedure started. 10:58:51 Local anesthetic to right femoral artery with Lidocaine 2% by Stephen Rock MD.INITIAL ACCESS ONLY 11:00:02 Versed 1 mg I.V. was administered by Ana Saini RN; for sedation; 11:00:06 Fentanyl 50 mcg I.V. was administered by Ana Saini RN; for sedation; 11:00:35 A 5 Fr sheath was inserted into the Right Femoral artery 11:00:46 A DIAGNOSTIC UF 5Fr catheter ([id number]) was advanced over the wire and used for Procedure. 11:01:56 Abdominal Aortagram was performed. 11:01:59 Left leg runoff performed. 11:02:00 Right leg runoff performed. 11:03:30 INFLATOR Merit BasixCompak (DS8685) opened to sterile field. 11:03:32 SHEATH 6FR Brite Tip 35cm (114123H) opened to sterile field. 11:03:33 GLIDE WIRE Super Stiff Angled 260cm (FL1567) opened to sterile field. 11:03:33 GLIDE CATHETER 5FR STRAIGHT 100cm (CG506) opened to sterile field. 11:03:46 SHEATH 6FR [place] (HKZ134) opened to sterile field. 11:04:53 Local anesthetic to left femerol artery with Lidocaine 2% by Stephen Rock MD.ADDITIONAL ACCESS 11:05:23 Heparin Bolus 4000 units I.V. was administered by Ana Saini RN; for anticoagulation; verified with dr rock 11:05:45 A 6 Fr Mid-Length sheath was inserted into the Left Femoral artery 11:06:06 Marion wire and Straight Marion Catheter advanced. 11:06:58 TORQUE DEVICE PLASTIC .038 ( TD01) opened to sterile field. 11:07:35 Unable to cross lesion in Left Iliac. 11:07:39 Wire removed. 11:07:44 Catheter removed. 11:08:15 Marion wire advanced through UF in attempt to cross lesion in Left Iliac. 11:08:52 Catheter exchanged over wire. 11:09:28 GUIDE 6FR LLOYD catheter (LA6IMA) opened to sterile field. 11:10:12 Sheath upsized to a 6 Fr Short. 11:10:32 6 Fr LLOYD guide catheter was inserted over the wire 11:12:13 Marion wire unable to cross lesion. 11:12:19 EXOSEAL 6Fr (EX600) opened to sterile field. 11:12:35 EXOSEAL 6Fr (EX600) opened to sterile field. 11:12:43 Wire removed. 11:12:45 Guide catheter removed. 11:12:55 Sheath removed intact; hemostasis achieved with Exoseal to the Right Femoral artery. 11:13:01 Sheath upsized to a 6 Fr Short. 11:13:07 Sheath removed intact; hemostasis achieved with Exoseal to the Left Femoral artery. 11:13:13 Procedure ended.(Physican Out) 11:20:49 Tegaderm 4 x 4 (1626W) opened to sterile field. 11:20:56 Fluoroscopy time 05.80 minutes. 11:21: Fluoroscopy dose: 356 mGy 11:21: Flurop Dose total: 356 11:21:05 Contrast amount:Isovue 300 51ml. 11:21:07 Sharps counted by scrub and verified by R.N. 11:21:09 Insertion/operative site no bleeding no hematoma. 11:21:15 Post-op/insertion site Left Femoral artery dressed using a 4 x 4 and Tegaderm. 11:21:19 Post-op/insertion site Right Femoral artery dressed using a 4 x 4 and Tegaderm. 11:23:21 Post Procedure Pulses reassessed and unchanged 11:23:24 Post-procedure physical assessment completed. ASA score P 2 - A patient with mild systemic disease as per Stephen Rock MD. 11:23:26 Post procedure rhythm: unchanged. 11:23:29 Estimated blood loss: 10 ml 11:23:31 Post procedure instruction explained to patient.Patient verbalizes understanding. 11:23:31 Patient needs reinforcement of post procedure teaching. 11:23:37 Procedure and supply charges have been captured, reviewed, submitted and are correct. 11:23:40 Procedure Complication : No complications 11:25:53 Vital chart was stopped 11:25:54 See physician's report for complete and final results. 11:25:57 Report given to [facility]. 11:26:00 Patient transfered to [facility] with Bed. 11:26:02 Procedure ended. 11:26:02 Full Disclosure recording stopped 11:26:09 End room use (Document Last) Device Usage Item Name Manufacture Quantity Catalog Hospital Part Current Minimal L ot# / Number Charge Number Stock Stock Serial# Code ACIST Acist 1 26138 735359 627911 429442 20 Syringe Mavent (99652) Clique Media Inc Bag Microtek 1 488870 44251 166889 5 DecMotiga Inc. () Medline Medline 1 [id number] 666171 69085 786457 5 Cath Pack ([id number]) ACIST Hand Acist 1 14046 770772 882111 127305 5 Control Medical (64769) Systems Inc Tegaderm 4 3M 2 1626W 634369 788078 764752 5 x 4 (1626W) ACIST Acist 1 54181 308754 493309 760435 5 Manifold Medical (84481) Systems Inc DIAGNOSTIC St Aristides 1 887863 936472 056815 635858 30 WIRE .035 260cm J wire (893473) SHEATH 5FR Terumo 1 SJB701 786876 243497 379995 5 [place] (LUJ274) DIAGNOSTIC Cardinal 1 [id number] 648381 362640 935243 10 UF 5Fr BlueData Software catheter (286522N1) INFLATOR Merit 1 CF0655 274291 706705 039653 15 AskBot Medical BasixCompak (DQ2981) SHEATH 6FR Cardinal 1 [id number] 898320 426989 337986 1 Brite Tip Health 35cm (773208U) GLIDE WIRE Terumo 1 DY1615 620650 438840 334451 5 Super Stiff Angled 260cm (YO1613) GLIDE Terumo 1 CG506 103433 77260 906315 4 CATHETER 5FR STRAIGHT 100cm (CG506) SHEATH 6FR Terumo 1 HUX269 894703 197074 612788 40 [place] (BPV499) TORQUE Logan 1 TD01 540493 870065 003264 5 DEVICE Scientific PLASTIC .038 ( TD01) GUIDE 6FR Medtronic 1 LA6IMA 911970 84419 528085 1 LLOYD catheter (LA6IMA) EXOSEAL 6Fr Cardinal 2 EX600 412094 589634 575528 10 (EX600) Health Signature Audit Reads Landing Stage Time Signature Unsigned Intra-Procedure 10/28/2018 Jerry De Los Santos 11:26:24 AM RT(R) Signatures Monitor : Jerry De Los Santos RT Signature : Date : Time : [facility] [address] [place] [address]
--- NOTE | ~2018-10-23 | HEMODYNAMI ---
PATIENT:ALISHA GIRON MEDICAL RECORD: [id number] : 52 [facility] AD[facility] DATE: 10/23/18 Generatedon:10/23/201812:09 Patient name: ALISHA GIRON Patient #: [id number] SSN: DO B: 1950 Date of study: 10/23/2018 Page: Of Hemodynamic Procedure Report Patient Data Patient Demographics Procedure consent was obtained First Name: ALISHA Gender: Male Last Name: MACK : 1950 [facility] Initial: D Age: 68 year(s) Patient #: [id number] Race: Unknown Additional ID: [id number] Contact details Address: [address] [place] [address] ROAD State: [place] City: [place] Zip code: [address] Past Medical History Allergies: No known allergies Admission Admission Data Admission Date: 10/23/2018 Admission Time: 11:38 Room [place]: [place] Lab Results Lab Result Date: 10/23/2018 Lab Result Time: 0:00 CBC Name Units Result Min Max Hemoglobin g/dl 12.8 -*(----)-- 13.5 17.5 Procedure Procedure Types Cath Procedure Diagnostic Procedure LHC LHC w/Coronaries Temporary Pacemaker Procedure Description Procedure Date Procedure Date: 10/23/2018 Procedure Start Time: 11:47 Procedure End Time: 12:08 Procedure Staff Name Function Stephen Rock MD Performing Physician Lydia Weiss RT Scrub Fazal Caldwell RT Monitor Emily Gonzalez RN Nurse Lenin Horton RN Ticket Dispatcher Procedure Data Cath Procedure Fluoroscopy Diagnostic fluoroscopy Total fluoroscopy Time: 1.7 time: 1.7 min min Diagnostic fluoroscopy Total fluoroscopy dose: 257 dose: 257 mGy mGy Contrast Material Contrast Material Type Amount (ml) Isovue 300 17 Entry Location Entry Primary Successful Side Size Upsize Upsize Entry Closure Galarza ccessful Closure Location (Fr) 1 (Fr) 2 (Fr) Remarks Device Remarks Femoral Right 6 Fr Manual vein Short Compression Femoral Right 6 Fr Exoseal artery Short Diagnostic catheters Device Type Used For End Catheter Placement MULTIPACK Pigtail 5 Fr LV Angiography catheter MULTIPACK JL 4.0 5Fr Left Coronary catheter Angiography MULTIPACK 3DRC 5Fr Right Coronary catheter Angiography Procedure Complications No complications Procedure Medications Medication Administration Route Dosage 0.9% NaCl I.V. 300 ml/hr Oxygen NC 10 l/min Lidocaine 2% added to field 20 Heparin Flush Bag added to field 2 bags (1000units/500ml NS) Versed I.V. 2 mg Fentanyl I.V. 50 mcg Versed I.V. 1 mg Hemodynamics Rest HGB: 12.8 (g/dl) Heart Rate: 42 (bpm) Snapshots Pre Cath Intra NCS Post Cath Vital Signs Time Heart Resp SPO2 etCO2 NIBP Rhythm Pain Sedation Rate (ipm) (%) (mmHg) (mmHg) Status Level (bpm) 11:35:28 41 19 100 0 104/64(86) SB 0 (11) 10(A) , No pain 11:39:33 40 20 99 0 107/52(88) SB 0 (11) 10(A) , No pain 11:43:37 35 23 98 0 113/64(83) SB 0 (11) 10(A) , No pain 11:47:45 36 22 97 0 92/56(78) SB 0 (11) 9(A) , No pain 11:51:45 79 21 97 0 107/61(99) Paced 0 (11) 9(A) , No pain 11:55:48 79 23 97 0 112/64(85) Paced 0 (11) 10(A) , No pain 11:59:54 78 23 97 0 113/64(89) Paced 0 (11) 10(A) , No pain 12:04:00 79 23 97 0 120/67(88) Paced 0 (11) 10(A) , No pain 12:07:59 0 No Cuff Paced 0 (11) 10(A) , No pain Medications Time Medication Route Dose Verified Delivered Reason Notes Effe ctiveness by by 11:37:57 0.9% NaCl I.V. 300 Stephen Emily used for ml/hr Pranav Gonzalez deputy brand inspector 11:39:01 Oxygen NC 10 Stephen Emily used for l/min Pranav Gonzalez deputy brand inspector 11:39:07 Lidocaine 2% added 20ml Stephen Mitchell for local to vial Pranav Rokc MD anesthetic field 11:39:11 Heparin Flush added 2 Stephen Mitchell used for Bag to bags Pranav Rock MD procedure (1000units/500ml field NS) 11:40:57 Versed I.V. 2 mg Stephen Mlitona for Pranav Gonzalez sedation RN 11:41:02 Fentanyl I.V. 50 Stephen Emily for mcg Pranav Gonzalez sedation RN 11:46:44 Versed I.V. 1 mg Stephen Houseyla for Pranav Gonzalez sedation rehabilitation attendant Log Time Note 11::34 Signed procedure consent form obtained from patient. 11:20:38 Diagnostic Cath status Elective 11:20:39 Lenin Horton RN sent for patient. Start room use. 11:20:41 Time tracking: Regular hours (M-F 7:00 - 5:00) 11:20:44 Plan of Care:Hemodynamics will remain stable., Cardiac rhythm will remain stable., Comfort level will be maintained., Respiratory function will remain adequate., Patient/ family verbilizes understanding of procedure., Procedure tolerated without complication., Recovers from procedure without complications.. 11:26:38 H&P Date Dictated: 10/23/2018 ER History on chart.. 11:32:14 ECG and BP/O2 sat monitors applied to patient. 11:34:14 Vital chart was started 11:34:15 Baseline sample Acquired. 11:34:39 Rhythm: sinus bradycardia 11:34:41 Full Disclosure recording started 11:34:41 Pre-procedure instructions explained to patient. 11:34:42 Pre-op teaching completed and patient verbalized understanding. 11:34:47 Family in waiting room. 11:34:49 Patient NPO since Breakfast. 11:35:02 Patient allergic to No known allergies 11:35:04 Is the patient allergic to Iodine/contrast media? No. 11:35:44 Is patient on blood thinner?Yes 11:35:47 ACC The patient was administered the following blood thiners within the last 24 hours: ACCPlavix 11:35:51 Patient diabetic? No. 11:35:52 ----Pre-sedation anethsthesia assessment.---- 11:35:54 Previous problem with sedation/anesthesia? No ? 11:35:56 Snore? No 11:35:57 Sleep apnea? No 11:35:58 Deviated septum? No 11:35:59 Opens mouth fully? Yes 11:36:01 Sticks out tongue? Yes 11:36:09 Airway obstruction? No ? 11:36:12 Dentures? No ? 11:36:16 Pre procedure: right dorsailis pedis pulse 1+ Palpable, but thready & weak; easily obliterated 11:36:38 Patient pain scale 0/10 ?. 11:36:50 IV patent on arrival in right forearm with 0.9% NaCl at 10ml/hr. 11:37:16 Rhythm: 2nd degree heart block 11:37:57 0.9% NaCl 300 ml/hr I.V. was administered by Emily Gonzalez RN; used for procedure; 11:39:01 Oxygen 10 l/min NC was administered by Emily Gonzalez RN; used for procedure; 11:39:07 Lidocaine 2% 20ml vial added to field was administered by Stephen Rock MD; for local anesthetic; 11:39:11 Heparin Flush Bag (1000units/500ml NS) 2 bags added to field was administered by Stephen Rock MD; used for procedure; 11:39:24 Lab Result : Hemoglobin 12.8 g/dl 11:39:28 Lab results completed and on chart. 11:39:32 Right groin area was prepped with chlora-prep and draped in sterile fashion 11:39:33 Alarms reviewed by R. N. 11:39:34 Sharps counted by scrub and verified by R.N. 11:39:35 Physician arrived 11:39:36 --------ALL STOP TIME OUT------ 11:39:36 Final Timeout: patient, procedure, and site verified with staff and physician. All members of the team are in agreement. 11:39:38 Right groin site verified by team. 11:39:42 Fire Safety Assessment: A--An alcohol-based skin anteseptic being used preoperatively., C--Open oxygen or nitrous oxide is being used., D--An ESU, laser, or fiber-optic light is being used. 11:39:45 Physical assessment completed. ASA score P 2 - A patient with mild systemic disease as per Stephen Rock MD. 11:39:51 Sedation plan: IV Moderate Sedation Medication:Versed, Fentanyl 11:40:57 Versed 2 mg I.V. was administered by Emily Gonzalez RN; for sedation; 11:41:02 Fentanyl 50 mcg I.V. was administered by Emily Gonzalez RN; for sedation; 11:45:57 INFLATOR Merit Nick ([id number]) opened to sterile field. 11:46:04 CHOICE PT Extra Support 182cm wire ([id number]) opened to sterile field. 11:46:10 SHEATH 6FR Mclean (SSD574) opened to sterile field. 11:46:19 ACIST Syringe (42964) opened to sterile field. 11:46:19 Bag Decanter (2002S) opened to sterile field. 11:46:20 Medline Cath Pack ([id number]) opened to sterile field. 11:46:20 DIAGNOSTIC WIRE .035 260cm J wire (875441) opened to sterile field. 11:46:22 ACIST Hand Control (24460) opened to sterile field. 11:46:22 ACIST Manifold (33479) opened to sterile field. 11:46:23 DIAGNOSTIC Multipack 5Fr catheter set (LK8888) opened to sterile field. 11:46:23 Tegaderm 4 x 4 (1626W) opened to sterile field. 11:46:44 Versed 1 mg I.V. was administered by Emily Gonzalez RN; for sedation; 11:46:58 SHEATH Prelude 6Fr 0.035 (LPZ-5Z-85-035) opened to sterile field. 11:47:10 5Fr J Tip Temporary Pacing Catheter ([id number]) opened to sterile field. 11:47:14 Procedure started. 11:47:25 Local anesthetic to right femoral artery with Lidocaine 2% by Stephen Rock MD.INITIAL ACCESS ONLY 11:47:37 A 6 Fr Short sheath was inserted into the Right Femoral vein 11:47:45 A 6 Fr Short sheath was inserted into the Right Femoral artery 11:47:56 --------Temp Pacer------- 11:47:57 Temporary pacer inserted 11:48:26 Temporary pacer turned on with the following settings: Rate 80, MA 5, Mode: Demand. 11:48:44 A MULTIPACK Pigtail 5 Fr catheter was advanced over the wire and used for LV Angiography. 11:48:54 LV angiography performed. 11:48:56 LV gram done using FOX 11:49:18 EF : 60 % 11:49:21 Catheter removed. 11:49:27 A MULTIPACK JL 4.0 5Fr catheter was advanced over the wire and used for Left Coronary Angiography. 11:49:33 LCA angiography performed. 11:49:37 Zero performed for pressure channel P1 11:49:41 Zero performed for pressure channel P1 11:50:32 Catheter removed. 11:51:19 A MULTIPACK 3DRC 5Fr catheter was advanced over the wire and used for Right Coronary Angiography. 11:51:33 RCA angiography performed. 11:51:34 Catheter removed. 11:52:01 Contrast amount:Isovue 300 17ml. 11:52:12 Sheath removed intact; hemostasis achieved with Exoseal to the Right Femoral artery. 11:52:22 Sheath removed intact; hemostasis achieved with Manual Compression to the Right Femoral vein. 11:52:24 Procedure ended.(Physican Out) 11:52:38 Fluoroscopy time 01.70 minutes. 11:52:42 Fluoroscopy dose: 257 mGy 11:52:42 Flurop Dose total: 257 11:52:44 Sharps counted by scrub and verified by R.N. 11:54:18 Procedure type changed to Cath procedure, Diagnostic procedure, LHC, LHC w/Coronaries, Temporary Pacemaker 11:54:34 Insertion/operative site no bleeding no hematoma. 11:54:37 Post-op/insertion site Right Femoral artery dressed using a 4 x 4 and Tegaderm. 11:54:41 Post-op/insertion site Right Femoral vein dressed using a 4 x 4 and Tegaderm. 11:54:45 Post right femoral artery:stable 11:54:50 Post right femoral vein:stable 11:54:52 Post Procedure Pulses reassessed and unchanged 11:54:54 Post procedure: right dorsailis pedis pulse 1+ Palpable, but thready & weak; easily obliterated. 11:54:59 Post procedure rhythm: paced 11:55:00 Post procedure instruction explained to patient.Patient verbalizes understanding. 11:55:02 Procedure and supply charges have been captured, reviewed, submitted and are correct. 11:55:41 Procedure Complication : No complications 12:08:15 Vital chart was stopped 12:08:18 See physician's report for complete and final results. 12:08:50 Report given to CVICU. 12:08:55 Patient transfered to CVICU with Bed. 12:08:57 Procedure ended. 12:08:57 Full Disclosure recording stopped 12:09:01 End room use (Document Last) Device Usage Item Name Manufacture Quantity Catalog Number Hospital Part Current Minimal Lot# / Charge Number Stock Stock Serial# Code INFLATOR Merit Merit 1 [id number] 219429 238462 15 SlidetnFrontalRain Technologies ([id number]) CHOICE PT Extra [place] 1 [id number] 189466 226058 519726 5 Support 182cm Scientific wire ([id number]) SHEATH 6FR Terumo 1 [id number] 336180 569984 107618 40 Mclean (ORZ171) ACIST Syringe Acist 1 47024 512509 364344 128027 20 (71882) Medical Systems Inc Bag Decanter Microtek 1 2001S 728612 09186 154166 5 (2001S) Medical Inc. Medline Cath Medline 1 [id number] 290020 00033 854365 5 Pack ([id number]) DIAGNOSTIC WIRE St Aristides 1 051581 482353 735308 273976 30 .035 260cm J wire (219405) ACIST Hand Acist 1 67850 518628 916368 649255 5 Control (88728) Medical Systems Inc ACIST Manifold Acist 1 45251 662142 606740 385264 5 (98078) Medical Systems Inc DIAGNOSTIC Cardinal 1 PQ4007 343097 32946 186725 30 Multipack 5Fr Health catheter set (KY4242) Tegaderm 4 x 4 3M 1 1626W 866634 248924 349107 5 (1626W) SHEATH Prelude Merit 1 [id number]-5M-87-35 053144 6090351 293325 5 6Fr 0.035 Medical (DDT-5T-06-035) 5Fr J Tip Bailey 1 [id number] 913282 14706 942496 2 Temporary Lifesciences Pacing Catheter ([id number]) MULTIPACK Cardinal 1 732206 5 Pigtail 5 Fr Health catheter MULTIPACK JL Cardinal 1 047291 5 4.0 5Fr Health catheter MULTIPACK 3DRC Cardinal 1 060980 5 5Fr catheter Health Signature Audit [place]farland Stage Time Signature Unsigned Intra-Procedure 10/23/2018 Fazal THOMAS(R) 12:09:15 PM Signatures Monitor : Fazal THOMAS Signature : Date : Time : [place] [address] [place] [address]
[2018-10-23] MEDS ORDERED: FISH OIL 1,0001 CA1 PO ×2 (10:36→16:09)
[2018-10-23] MEDS ORDERED: ADVAIR HFA [SP]12 GM INH (10:37)
[2018-10-23 10:46] LABS: BASOPHILS 0.1 % (0-2); EOSINOPHILS 0.1 % (0-7); HEMATOCRIT 38.4 % (42.0-54.0); HEMOGLOBIN 12.8 g/dL (13.5-17.5); IMMATURE GRANULOCYTES 0.8 % (0-5); MCH 30.9 pg (26.0-34.0); MCHC 33.3 g/dL (31.0-37.0); MCV 92.8 fL (80.0-100.0); MEAN PLATELET VOLUME 10.9 fL (7.4-10.4); MONOCYTES 2.6 % (2-11); NEUTROPHILS 91.4 % (40-80); PLATELET COUNT 197 10x3/uL (130-400); RBC 4.14 10x6/uL (4.20-6.10); RDW 14.2 % (11.5-14.5); WBC 15.9 10x3/uL (4.8-10.8)
[2018-10-23 10:53] LABS: APTT 29.5 SECONDS (22.8-39.4); INR 1.02 (0.85-1.17); PROTIME 12.9 SECONDS (11.6-15.0)
[2018-10-23 11:07] LABS: ALBUMIN 3.5 g/dL (3.4-5.0); ALKALINE PHOSPHATASE 96 U/L (46-116); ALT (SGPT) 35 U/L (10-68); BILIRUBIN - TOTAL 0.74 mg/dL (0.2-1.3); CALC OSMOLALITY 282 mosm/kg (275-300); CALCIUM 8.8 mg/dL (8.5-10.1); CARBON DIOXIDE 24.3 mmol/L (21.0-32.0); CHLORIDE - SERUM 101 mmol/L (98-107); CREATININE - SERUM 2.4 mg/dL (0.6-1.3); GLUCOSE 174 mg/dL (74-106); POTASSIUM - SERUM 4.7 mmol/L (3.5-5.1); PROTEIN - SERUM 7.4 g/dL (6.4-8.2); SODIUM 137 mmol/L (136-145); UREA NITROGEN 27 mg/dL (7-18); eGFR NON AFRICAN AMERICAN 29 mL/min (90-120)
[2018-10-23 11:20] LABS: CKMB 1.3 U/L (0.0-3.6); CREATINE KINASE 173 UL (21-232); PRO BNP 960 pg/mL (0-125); TROPONIN-I 0.031 ng/mL (0.000-0.060)
[2018-10-23 12:59] LABS: APPEARANCE CLEAR (CLEAR); BILIRUBIN NEGATIVE (NEGATIVE); COLOR YELLOW (YELLOW); GLUCOSE NEGATIVE (NEGATIVE); KETONE NEGATIVE (NEGATIVE); NITRITE NEGATIVE (NEGATIVE); PROTEIN NEGATIVE (NEGATIVE); SPECIFIC GRAVITY 1.015 (1.005-1.020); UROBILINOGEN NORMAL (NORMAL)
[2018-10-23] MEDS ORDERED: TRELEGY ELLIPTA (16:19)
[2018-10-24] VITALS (31 sets, daily range): BP systolic 107–160; BP diastolic 42–64; BMI 26.5
[2018-10-24 05:16] LABS: BASOPHILS 0.1 % (0-2); EOSINOPHILS 0 % (0-7); HEMATOCRIT 34.6 % (42.0-54.0); HEMOGLOBIN 11.3 g/dL (13.5-17.5); IMMATURE GRANULOCYTES 1.3 % (0-5); LYMPHOCYTES 5.4 % (15-50); MCH 30.5 pg (26.0-34.0); MCHC 32.7 g/dL (31.0-37.0); MCV 93.5 fL (80.0-100.0); MEAN PLATELET VOLUME 10.7 fL (7.4-10.4); MONOCYTES 6.7 % (2-11); NEUTROPHILS 86.5 % (40-80); RDW 14.2 % (11.5-14.5); WBC 18.2 10x3/uL (4.8-10.8)
[2018-10-24 05:27] LABS: PLATELET COUNT 136 10x3/uL (130-400)
[2018-10-24 05:31] LABS: ANION GAP 16.4 mmol/L (8-16); CARBON DIOXIDE 24.9 mmol/L (21.0-32.0); CREATININE - SERUM 1.8 mg/dL (0.6-1.3); POTASSIUM - SERUM 4.3 mmol/L (3.5-5.1)
--- NOTE | 2018-10-24 15:43 | MORECARE ---
CASE MANAGEMENT DISCHARGE SUMMARY PATIENT: ALISHA GIRON UNIT: [id number] ADM DATE: 10/23/18 AGE: 68 : 51 SEX: M ROOM/BED: D.[facility] AUTHOR: JUDITH,DOC PHYSICIAN: REFERRING PHYSICIAN: GREGORY WOODARD MD DATE OF SERVICE: 10/24/18 Discharge Plan Patient Name: ALISHA GIRON Facility: [facility]:[place] : 1950 Planned Disposition: Home Anticipated Discharge Date: Discharge Date: Expected LOS: Initial Reviewer: [email or web address] Initial Review Date: 10/23/2018 Generated: 10/24/18 4:43 pm Comments DCP- Discharge Planning Updated by [email or web address]: Amber Abreu on 10/24/18 2:[address] Patient Name: ALISHA GIRON Admission Status: ER Accout number: [id number] Admission Date: 10-23-2018 : 1950 Admission Diagnosis: Attending: GREGORY WOODARD Current LOS: 1 Anticipated DC Date: Planned Disposition: Home Primary Insurance: MEDICARE A & B Discharge Planning Comments: CM met with patient at bedside after obtaining verbal consent. Patient states he plans on returning home after discharge with his . Patient states he will have family transport him home via private vehicle. Patient states that he has a nebulizer and home 02 but doesn't have portable 02. Patient may need walk test for portable 02. CM will continue to follow and assist as needed for discharge planning / needs. Therapeutic Consultant: Amber Abreu DCPIA - Discharge Planning Initial Assessment Updated by [email or web address]: Amber Abreu on 10/24/18 3:38 pm * Is the patient Alert and Oriented? Yes * How many steps to enter\exit or inside your home? * PCP [facility] * [facility] * Preadmission Environment Home with Family * ADLs Independent * Equipment Cane * Other Equipment HOME 02 BUT NO PORTABLE, NEBULIZER * List name and contact numbers for known caregivers / representatives who currently or will assist patient after discharge: XIOMARA GIRON - SPOUSE- [phone], * Verbal permission to speak to the caregivers and representatives has been obtained from the patient. Yes * Community resources currently utilized None * Additional services required to return to the preadmission environment? No * Can the patient safely return to the preadmission environment? Yes * Has this patient been hospitalized within the prior 30 days at any hospital? No Patient Name: ALISHA GIRON Page [id number] at 1543 All edits/amendments must be made on the electronic document DICTATION DATE: 10/24/181542 LICENSED VOCATIONAL NURSE: ADRIANA 10/24/181542 RPT#: [id number] DC DATE: STATUS: ADM IN [facility] [address] [place] [address] END OF REPORT
[2018-10-25] VITALS (24 sets, daily range): BP systolic 120–168; BP diastolic 45–69
[2018-10-25 05:18] LABS: ANION GAP 16.6 mmol/L (8-16); CALCIUM 8.2 mg/dL (8.5-10.1); CARBON DIOXIDE 21.8 mmol/L (21.0-32.0); CREATININE - SERUM 1.4 mg/dL (0.6-1.3)
[2018-10-25 05:23] LABS: POTASSIUM - SERUM 3.4 mmol/L (3.5-5.1)
[2018-10-25 05:24] LABS: HEMATOCRIT 31.1 % (42.0-54.0); HEMOGLOBIN 10.7 g/dL (13.5-17.5); LYMPHOCYTES 2.9 % (15-50); MCH 31.7 pg (26.0-34.0); MCHC 34.4 g/dL (31.0-37.0); MEAN PLATELET VOLUME 10.8 fL (7.4-10.4); NEUTROPHILS 91.2 % (40-80); PLATELET COUNT 109 10x3/uL (130-400); RBC 3.38 10x6/uL (4.20-6.10); RDW 14.4 % (11.5-14.5); WBC 13.7 10x3/uL (4.8-10.8)
[2018-10-26] VITALS (15 sets, daily range): BP systolic 147–173; BP diastolic 52–79
[2018-10-26 06:14] LABS: BASOPHILS 0.1 % (0-2); EOSINOPHILS 0 % (0-7); HEMATOCRIT 29.5 % (42.0-54.0); HEMOGLOBIN 9.9 g/dL (13.5-17.5); IMMATURE GRANULOCYTES 0.7 % (0-5); LYMPHOCYTES 4.4 % (15-50); MCH 30.6 pg (26.0-34.0); MCHC 33.6 g/dL (31.0-37.0); MEAN PLATELET VOLUME 10.7 fL (7.4-10.4); MONOCYTES 3.1 % (2-11); NEUTROPHILS 91.7 % (40-80); RBC 3.24 10x6/uL (4.20-6.10); RDW 14.6 % (11.5-14.5); WBC 12.7 10x3/uL (4.8-10.8)
[2018-10-26 06:28] LABS: PLATELET COUNT 135 10x3/uL (130-400)
[2018-10-26 06:41] LABS: CALCIUM 7.9 mg/dL (8.5-10.1); CARBON DIOXIDE 22.4 mmol/L (21.0-32.0); CHLORIDE - SERUM 109 mmol/L (98-107); POTASSIUM - SERUM 3.8 mmol/L (3.5-5.1); SODIUM 143 mmol/L (136-145); UREA NITROGEN 22 mg/dL (7-18); eGFR NON AFRICAN AMERICAN 79 mL/min (90-120)
[2018-10-26 06:43] LABS: CALC OSMOLALITY 293 mosm/kg (275-300); GLUCOSE 212 mg/dL (74-106)
[2018-10-27 03:55] VITALS: BP 174/85
[2018-10-27 08:50] VITALS: BP 151/70
[2018-10-27 09:10] LABS: ANION GAP 15.6 mmol/L (8-16); CALCIUM 8.4 mg/dL (8.5-10.1); CARBON DIOXIDE 24.3 mmol/L (21.0-32.0); CREATININE - SERUM 1.1 mg/dL (0.6-1.3); POTASSIUM - SERUM 3.9 mmol/L (3.5-5.1)
[2018-10-27 09:13] LABS: HEMOGLOBIN 10.9 g/dL (13.5-17.5); MCH 30.8 pg (26.0-34.0); MEAN PLATELET VOLUME 10.7 fL (7.4-10.4); PLATELET COUNT 154 10x3/uL (130-400); RBC 3.54 10x6/uL (4.20-6.10); RDW 14.4 % (11.5-14.5)
[2018-10-27 09:14] LABS: MCV 93.2 fL (80.0-100.0); WBC 8.8 10x3/uL (4.8-10.8)
[2018-10-27 09:36] LABS: HYPOCHROMASIA 2+; LYMPHOCYTES 16 % (15-50); MONOCYTES 10 % (2-11); NEUTROPHILS 67 % (40-80); PLATELET ESTIMATE NORMAL
[2018-10-27 12:21] VITALS: BP 155/73
[2018-10-27 15:48] VITALS: BP 153/81
[2018-10-27 19:55] VITALS: BP 149/71
[2018-10-27 23:50] VITALS: BP 188/76
[2018-10-28 01:30] VITALS: BP 176/82
[2018-10-28 03:43] VITALS: BP 172/79
[2018-10-28 08:21] VITALS: BP 132/62
[2018-10-28 13:34] VITALS: BP 165/79
[2018-10-28 15:41] VITALS: Ht 185.4 cm; Wt 88.6 kg
[2018-10-28 17:57] VITALS: BP 174/63
[2018-10-28 21:43] VITALS: BP 169/66
[2018-10-29 01:07] VITALS: BP 173/64
[2018-10-29 05:57] VITALS: BP 132/81
[2018-10-29 06:39] LABS: HEMATOCRIT 32.4 % (42.0-54.0); HEMOGLOBIN 10.6 g/dL (13.5-17.5); MCH 29.8 pg (26.0-34.0); MCHC 32.7 g/dL (31.0-37.0); MEAN PLATELET VOLUME 11.1 fL (7.4-10.4); PLATELET COUNT 180 10x3/uL (130-400); RBC 3.56 10x6/uL (4.20-6.10); WBC 8.9 10x3/uL (4.8-10.8)
[2018-10-29 06:54] LABS: CALC OSMOLALITY 286 mosm/kg (275-300); CALCIUM 8.1 mg/dL (8.5-10.1); CARBON DIOXIDE 25.8 mmol/L (21.0-32.0); CHLORIDE - SERUM 103 mmol/L (98-107); GLUCOSE 216 mg/dL (74-106); SODIUM 139 mmol/L (136-145); UREA NITROGEN 19 mg/dL (7-18); eGFR NON AFRICAN AMERICAN 79 mL/min (90-120)
[2018-10-29 06:58] LABS: POTASSIUM - SERUM 4.5 mmol/L (3.5-5.1)
[2018-10-29 08:11] LABS: ANISOCYTOSIS OCC; LYMPHOCYTES 9 % (15-50); MONOCYTES 10 % (2-11); NEUTROPHILS 79 % (40-80); PLATELET ESTIMATE NORMAL
[2018-10-29 08:19] VITALS: BP 162/72
--- NOTE | 2018-10-29 11:18 | OP ---
PATIENT NAME: ALISHA GIRON MEDICAL RECORD: [id number] :52 LOCATION:D.M2 D.2120 ADMISSION DATE:10/23/18 SURGEON: HNA TEJADA MD DATE OF OPERATION: 10/23/2018 PROCEDURES: 1. Temporary pacemaker placement. 2. Left heart catheterization. 3. Selective coronary angiography. 4. Left ventriculogram. INDICATION: Bradycardia, shortness of breath, angina. PROCEDURE IN DETAIL: After informed consent was obtained and after a detailed description of risks, benefits as well as alternative therapies, the patient elected to proceed with angiogram and angioplasty. The right femoral area was prepped and draped in normal sterile fashion. Right femoral artery and vein were both cannulated via modified Seldinger technique with placement of 6-Kiswahili sheath. All catheters exchanged through this sheath. FINDINGS: Left ventriculogram was performed in standard 30-degree FOX view, reveals good cardiac wall motion throughout all segments. Overall ejection fraction estimated at 55% to 60%. SELECTIVE CORONARY ANGIOGRAPHY: Left main, left anterior descending, left circumflex, right coronary artery are all smooth-walled vessels with no angiographic evidence of coronary artery disease. Temporary pacemaker was placed in the RV apex. Pacing was undertaken with good thresholds. OVERALL IMPRESSION: No coronary artery disease present. Normal LV function. Temporary pacemaker was successfully placed. TRANSINT:[id number] Voice Confirmation ID: [id number] DOCUMENT ID: [id number] HAN TEJADA MD at 1118 CC: [id number] DICTATION DATE: 10/23/18 1206 SUPERVISOR MAJOR APPLIANCE ASSEMBLY: 10/23/18 1319 [place] [address]
--- NOTE | 2018-10-29 11:18 | EC ---
PATIENT:ALISHA GIRON DATE OF SERVICE: 10/23/18 SEX: M MEDICAL RECORD: [id number] DATE OF : 52 LOCATION:D.M2 D.212 AGE OF PATIENT: 68 ADMISSION DATE: 10/23/18 REFERRING PHYSICIAN: INTERPRETING PHYSICIAN: HAN ROCK MD ECHOCARDIOGRAM REPORT ECHO CHARGES 4 ECHO COMPLETE Date: 10/23/18 CLINICAL DIAGNOSIS: SOB ECHOCARDIOGRAPHIC MEASUREMENTS (adult normal given) AC root (d.<3.7cm) 3.9 cm LV Septum d (<1.2 cm> 1.1 cm Valve Excursion 2.0 cm LV Septum (systole) 1.7 cm Left Atria (s.<4.0cm> 3.1 cm LVPW d(<1.2cm) 1.3 cm RV (d.<2.3cm) 2.6 cm LVPW (sytole) 1.9 cm LV diastole(<5.6CM) 5.5 cm MV E-F(>70mm/sec) cm LV systole 2.4 cm LVOT Diameter 1.9 cm MV exc.(>10mm) cm Est.ejection fraction (50-75%) % DOPPLER: LVIT cm/sec A cm/sec E 116 cm/sec LA cm/sec RVSP 15.0 mmHg LVOT 88 cm/sec AOP1/2T m/s Asc. Ao 136 cm/sec RVOT 72 cm/sec RA cm/sec PA 97 cm/sec AV Gradient Peak 7.4 mmHg AV Mean 4.5 mmHg AV Area 2.2 cm MV Gradient Peak 5.0 mmHg MV Mean 2.5 mmHg MV Area cm COMMENTS: Type Disk Quality Control Supervisor: Zunilda BUTLER Lens Cleaner: Lidia Rock TAPE# PACS Pericardial Effusion N DATE OF SERVICE: 10/23/2018 PROCEDURE: Echocardiogram. FINDINGS: 1. Left ventricular chamber size is within normal limits. Left ventricular systolic function is normal. Overall ejection fraction estimated at 60%. 2. Left atrium, right atrium, and right ventricular chamber sizes are within normal limits. 3. Valvular structures have normal structure and motion. ECHOCARDIOGRAM REPORT [id number] ALISHA GIRON 4. Doppler interrogation reveals only trace tricuspid regurgitation, no other valvular insufficiency or stenosis. 5. No evidence of pericardial effusion or left ventricular thrombus. TRANSINT:[id number] Voice Confirmation ID: [id number] DOCUMENT ID: [id number] HAN ROCK MD at 1118 CC: [id number] DICTATION DATE: 10/24/1857 BAKING POWDER MIXER: 10/24/18 0941 ADM IN [place] [address] [place] [id number]
--- NOTE | 2018-10-29 11:18 | CN ---
PATIENT NAME:ALISHA GIRON MEDICAL RECORD: [id number] : 52 LOCATION:[facility] D.2120 ADMIT DATE: 10/23/18 ACCOUNT: [id number] CONSULTING PHYSICIAN: HAN TEJADA MD REFERRING PHYSICIAN: GREGORY WOODARD MD DATE OF CONSULTATION: 10/23/2018 CARDIOLOGY CONSULTATION ADMITTING DIAGNOSES: 1. Bradycardia. 2. Chest pain. 3. Pneumonia. 4. Shortness of breath. 5. Renal insufficiency. 6. Hypertension. 7. Hyperlipidemia. HISTORY OF PRESENT ILLNESS: This is a gentleman who arrived with shortness of breath and some chest pain, found to be very bradycardic with an idioventricular rhythm and heart rates in the 30s. He has no previous history of ischemic heart disease. His chest x-ray is compatible with bilateral pneumonia and his renal insufficiency is abnormal with creatinine in the 2.6 range. PHYSICAL EXAMINATION: GENERAL APPEARANCE: Well-nourished, well-developed, appears stated age. Level of distress, comfortable. PSYCHIATRIC: Mental status, alert, normal affect. Orientation, oriented to time, place and person. EYES: Lids and conjunctiva, noninjected. No discharge, no pallor. ENT: Lips, teeth, gums, normal dentition. Oropharynx, no cyanosis, no pallor. NECK: Carotid arteries, bilateral normal upstroke, no bruits, no thrills. JUGULAR VEINS: No jugular venous pressure or distention. CERVICAL LYMPH NODES: Nontender, nonenlarged. THYROID: Not enlarged. Nontender. No nodules. LUNGS: Respiratory effort, unlabored. CHEST: Normal curvature. No thoracic deformity. No chest wall tenderness. Percussion, resonant. Auscultation, clear. No wheezes, no rales, no rhonchi. CARDIOVASCULAR: Precordial exam, nondisplaced. No heaves or pericardial thrills. Rate and rhythm, regular. Heart sounds, normal S1, normal S2. No S3, no gallop, no rub. Systolic murmur, not heard. Diastolic murmur, not heard. EXTREMITIES: No cyanosis, no edema. Peripheral pulses, full and equal in all extremities, except as noted. No bruits appreciated. ABDOMEN: Soft, nondistended. Normal aorta. No bruit. Nontender. No masses. Liver, nontender, no hepatomegaly. Spleen, nontender, no splenomegaly. MUSCULOSKELETAL: No joint tenderness. No joint swelling. No erythema. NEUROLOGICAL: Normal gait, normal strength, normal tone. SKIN: Warm and dry. OVERALL IMPRESSION: Most likely, the bradycardia is secondary to the Lopressor that he is on in light of [id number] renal insufficiency, but cannot rule out acute coronary event secondary to the bradycardia and the markedly abnormal ECG. We will proceed with coronary angiography as well as temporary pacemaker placement. CONSULT REPORT [id number] ALISHA GIRON TRANSINT:[id number] Voice Confirmation ID: [id number] DOCUMENT ID: [id number] HAN TEJADA MD at 1118 CC: [id number] DICTATION DATE: 10/23/18 1204 SWAMPER: 10/23/18 1315 ADM IN [place] [id number]
--- NOTE | 2018-10-29 11:19 | OP ---
PATIENT NAME: ALISHA GIRON MEDICAL RECORD: [id number] :52 LOCATION:D.M2 D.2120 ADMISSION DATE:10/23/18 SURGEON: HAN TEJADA MD DATE OF OPERATION: 10/28/2018 PROCEDURES: 1. Aortofemoral runoff. 2. Abdominal aortography. 3. Attempted, but failed percutaneous transluminal angioplasty stent of the left common iliac for chronic total occlusion. DESCRIPTION OF PROCEDURE: After informed consent was obtained, after detailed description of risks, benefits as well as alternative therapies, the patient elected to proceed with angiogram and attempted angioplasty. Both femoral areas were prepped and draped in normal sterile fashion. Both femoral artery was cannulated via modified Seldinger technique with placement of 6-Beninese sheath. All catheters exchanged through this sheath. FINDINGS: Abdominal aortography was performed. The catheter was pulled down for aortofemoral runoff. Abdominal aortography reveals no significant abdominal aortic disease, no dissection or aneurysm formation. RIGHT LEG: A. Iliac: The common internal and external iliacs are moderately calcified, but no flow-limiting stenosis. B. Femoral system: The common superficial and deep femoral have moderate calcification, but no flow-limiting stenosis. C. Popliteal and infrapopliteal vessels have preserved 3-vessel runoff to the foot. LEFT LEG: A. Iliac: The common iliac is totally occluded. The external iliac and internal iliac are patent. B. Femoral system: The common superficial and deep femoral are widely patent. C. Popliteal and infrapopliteal vessels are widely patent. Attempted SUPERVISOR ESTIMATOR AND DRAFTER stent of the total occlusion of the left common iliac. This was extremely heavily calcified, very hard. We could not advance the wire at all through this total occlusion from above or below. OVERALL IMPRESSION: Total occlusion of the left iliac. This is the etiology of his symptomatology evaluate for aortofemoral or fem-fem crossover. TRANSINT:[id number] Voice Confirmation ID: [id number] DOCUMENT ID: [id number] HAN TEJADA MD at 1119 CC: GREGORY WOODARD [id number] DICTATION DATE: 10/28/18 1121 INSTRUCTOR PRODUCT INSPECTION: 10/28/18 1214 ADM IN [place] [id number] [place] [address]
[2018-10-29 12:17] VITALS: BP 190/57
[2018-10-29 16:26] VITALS: BP 153/81
--- NOTE | 2018-10-29 16:35 | MORECARE ---
CASE MANAGEMENT DISCHARGE SUMMARY PATIENT: ALISHA GIRON UNIT: [id number] ADM DATE: 10/23/18 AGE: 68 : 51 SEX: M ROOM/BED: D.9030 AUTHOR: JUDITH,DOC PHYSICIAN: REFERRING PHYSICIAN: GREGORY WOODARD MD DATE OF SERVICE: 10/29/18 Discharge Plan Patient Name: ALISHA GIRON Facility: [facility]:[place] : 1950 Planned Disposition: Home Anticipated Discharge Date: Discharge Date: Expected LOS: Initial Reviewer: [email or web address] Initial Review Date: 10/23/2018 Generated: 10/29/18 5:35 pm Comments DCP- Discharge Planning Updated by [id number]: Amber Abreu on 10/24/18 2:[address] Patient Name: ALISHA GIRON Admission Status: ER Accout number: [id number] Admission Date: 10-23-2018 : 1950 Admission Diagnosis: Attending: GREGORY WOODARD Current LOS: 1 Anticipated DC Date: Planned Disposition: Home Primary Insurance: MEDICARE A & B Discharge Planning Comments: CM met with patient at bedside after obtaining verbal consent. Patient states he plans on returning home after discharge with his . Patient states he will have family transport him home via private vehicle. Patient states that he has a nebulizer and home 02 but doesn't have portable 02. Patient may need walk test for portable 02. CM will continue to follow and assist as needed for discharge planning / needs. High School Agriculture Teacher: Amber Abreu DCPIA - Discharge Planning Initial Assessment Updated by [email or web address]: Amber Abreu on 10/24/18 3:38 pm * Is the patient Alert and Oriented? Yes * How many steps to enter\exit or inside your home? * PCP [facility] * [facility] * Preadmission Environment Home with Family * ADLs Independent * Equipment Cane * Other Equipment HOME 02 BUT NO PORTABLE, NEBULIZER * List name and contact numbers for known caregivers / representatives who currently or will assist patient after discharge: XIOMARA GIRON - SPOUSE- [phone], * Verbal permission to speak to the caregivers and representatives has been obtained from the patient. Yes * Community resources currently utilized None * Additional services required to return to the preadmission environment? No * Can the patient safely return to the preadmission environment? Yes * Has this patient been hospitalized within the prior 30 days at any hospital? No Last DP export: 10/24/18 2:43 p Patient Name: ALISHA GIRON Page 34841 at 1635 All edits/amendments must be made on the electronic document DICTATION DATE: 10/29/181634 PHILOSOPHY FACULTY MEMBER: ADRIANA 10/29/18 1635 RPT#: [id number] DC DATE: STATUS: ADM IN [facility] [address] [place] [address] END OF REPORT
[2018-10-30] VITALS: BP 185/71; BP 192/77
[2018-10-30 04:00] VITALS: BP 162/57
[2018-10-30 08:51] VITALS: BP 174/81
[2018-10-30 12:48] VITALS: BP 165/74
[2018-10-30 16:49] VITALS: BP 154/79
[2018-10-30 20:00] VITALS: BP 169/50
[2018-10-31] VITALS: BP 182/68
[2018-10-31 04:00] VITALS: BP 169/61
[2018-10-31] MEDS ORDERED: PLAVIX75 MG PO (07:40)
[2018-10-31] MEDS ORDERED: PREDNISONE20 MG PO (07:43)
[2018-10-31] MEDS ORDERED: NORCO-10 PO (07:44)
[2018-10-31] MEDS ORDERED: IPRAT-ALBUT 0.5-3 ML UPD (07:44)
[2018-10-31 08:56] VITALS: BP 170/65
--- NOTE | 2018-10-31 09:16 | MORECARE ---
CASE MANAGEMENT DISCHARGE SUMMARY PATIENT: ALISHA GIRON UNIT: [id number] ADM DATE: 10/23/18 AGE: 68 : 51 SEX: M ROOM/BED: D.8450 AUTHOR: JUDITH,DOC PHYSICIAN: REFERRING PHYSICIAN: GREGORY WOODARD MD DATE OF SERVICE: 10/31/18 Discharge Plan Patient Name: ALISHA GIRON Facility: [facility]:[place] : 1950 Planned Disposition: Home Anticipated Discharge Date: 10/31/18 Discharge Date: Expected LOS: 8 Initial Reviewer: [email or web address] Initial Review Date: 10/23/2018 Generated: 10/31/18 10:16 am Comments DCP- Discharge Planning Updated by [email or web address]: Amber Abreu on 10/24/18 2:[address] Patient Name: ALISHA GIRON Admission Status: ER Accout number: [id number] Admission Date: 10-23-2018 : 1950 Admission Diagnosis: Attending: GREGORY WOODARD Current LOS: 1 Anticipated DC Date: Planned Disposition: Home Primary Insurance: MEDICARE A & B Discharge Planning Comments: CM met with patient at bedside after obtaining verbal consent. Patient states he plans on returning home after discharge with his . Patient states he will have family transport him home via private vehicle. Patient states that he has a nebulizer and home 02 but doesn't have portable 02. Patient may need walk test for portable 02. CM will continue to follow and assist as needed for discharge planning / needs. Grounds Caretaker: Amber Abreu DCPIA - Discharge Planning Initial Assessment Updated by [email or web address]: Amber Abreu on 10/24/18 3:38 pm * Is the patient Alert and Oriented? Yes * How many steps to enter\exit or inside your home? * PCP [facility] * [facility] * Preadmission Environment Home with Family * ADLs Independent * Equipment Cane * Other Equipment HOME 02 BUT NO PORTABLE, NEBULIZER * List name and contact numbers for known caregivers / representatives who currently or will assist patient after discharge: XIOMARA GIRON - SPOUSE- [phone], * Verbal permission to speak to the caregivers and representatives has been obtained from the patient. Yes * Community resources currently utilized None * Additional services required to return to the preadmission environment? No * Can the patient safely return to the preadmission environment? Yes * Has this patient been hospitalized within the prior 30 days at any hospital? No Last DP export: 10/29/18 3:35 p Patient Name: ALISHA GIRON Page 17936 at 0916 All edits/amendments must be made on the electronic document DICTATION DATE: 10/31/18915 PROVIDER RELATIONS SPECIALIST: ADRIANA 10/31/18915 RPT#: [id number] DC DATE: STATUS: ADM IN [address] [place] [address] END OF REPORT
--- NOTE | 2018-10-31 09:32 | MORECARE ---
CASE MANAGEMENT DISCHARGE SUMMARY PATIENT: ALISHA GIRON UNIT: [id number] ADM DATE: 10/23/18 AGE: 68 : 51 SEX: M ROOM/BED: D.9070 AUTHOR: JUDITH,DOC PHYSICIAN: REFERRING PHYSICIAN: GREGORY WOODARD MD DATE OF SERVICE: 10/31/18 Discharge Plan Patient Name: ALISHA GIRON Facility: [facility]:[place] : 1950 Planned Disposition: Home Anticipated Discharge Date: 10/31/18 Discharge Date: Expected LOS: 8 Initial Reviewer: [email or web address] Initial Review Date: 10/23/2018 Generated: 10/31/18 10:32 am Comments DCP- Discharge Planning Updated by [email or web address]: Amber Abreu on 10/24/18 2:[address] Patient Name: ALISHA GIRON Admission Status: ER Accout number: [id number] Admission Date: 10-23-2018 : 1950 Admission Diagnosis: Attending: GREGORY WOODARD Current LOS: 1 Anticipated DC Date: Planned Disposition: Home Primary Insurance: MEDICARE A & B Discharge Planning Comments: CM met with patient at bedside after obtaining verbal consent. Patient states he plans on returning home after discharge with his . Patient states he will have family transport him home via private vehicle. Patient states that he has a nebulizer and home 02 but doesn't have portable 02. Patient may need walk test for portable 02. CM will continue to follow and assist as needed for discharge planning / needs. Hog Cutter: Amber Abreu DCPIA - Discharge Planning Initial Assessment Updated by [email or web address]: Amber Abreu on 10/24/18 3:38 pm * Is the patient Alert and Oriented? Yes * How many steps to enter\exit or inside your home? * PCP [facility] * [facility] * Preadmission Environment Home with Family * ADLs Independent * Equipment Cane * Other Equipment HOME 02 BUT NO PORTABLE, NEBULIZER * List name and contact numbers for known caregivers / representatives who currently or will assist patient after discharge: XIOMARA GIRON - SPOUSE- [phone], * Verbal permission to speak to the caregivers and representatives has been obtained from the patient. Yes * Community resources currently utilized None * Additional services required to return to the preadmission environment? No * Can the patient safely return to the preadmission environment? Yes * Has this patient been hospitalized within the prior 30 days at any hospital? No External Providers External Provider: Javid Next Contact Date: 10/31/2018 Service Request Date: Service Type: Resolution: Reviewer: Comments: Coverage Notice Reviewer: [id number] Izabella Lee Notice Issued Date-Time: 10/31/2018 8:55 Notice Type: Patient Choice Letter Notice Delivered To: Patient Relationship to Patient: Aws Solution Architect Name: Delivery Method: HAND - Hand Delivered Larisa Days: Prior Verbal Notification: Recipient Understood Notice: Yes Recipient Signature: Yes Med Rec Note Co-signed by Attending: Coverage Notice Comment: JORJE Reviewer: [email or web address] Lee Notice Issued Date-Time: 10/31/2018 8:55 Notice Type: IM Discharge Notice Notice Delivered To: Patient Relationship to Patient: Aws Solution Architect Name: Delivery Method: HAND - Hand Delivered Larisa Days: Prior Verbal Notification: Recipient Understood Notice: Yes Recipient Signature: Yes Med Rec Note Co-signed by Attending: Coverage Notice Comment: Last DP export: 10/31/18 8:16 a Patient Name: ALISHA GIRON Page 91397 at 0932 All edits/amendments must be made on the electronic document DICTATION DATE: 10/31/18930 PIECE HAND: ADRIANA 10/31/18930 RPT#: [id number] DC DATE: STATUS: ADM IN [facility] [address] [place] [address] END OF REPORT
--- NOTE | 2018-10-31 10:05 | MORECARE ---
CASE MANAGEMENT DISCHARGE SUMMARY PATIENT: ALISHA GIRON UNIT: [id number] ADM DATE: 10/23/18 AGE: 68 : 51 SEX: M ROOM/BED: D.6908 AUTHOR: JUDITH,DOC PHYSICIAN: REFERRING PHYSICIAN: GREGORY WOODARD MD DATE OF SERVICE: 10/31/18 Discharge Plan Patient Name: ALISHA GIRON Facility: [facility]:[place] : 1950 Planned Disposition: Home Anticipated Discharge Date: 10/31/18 Discharge Date: Expected LOS: 8 Initial Reviewer: [email or web address] Initial Review Date: 10/23/2018 Generated: 10/31/18 11:05 am Comments DCP- Discharge Planning Updated by [email or web address]: Robbin Lee on 10/31/18 9:[address] Patient Name: ALISHA GIRON Encounter No: [id number] : 1950 Primary Insurance: MEDICARE A & B Anticipated DC Date: 10-31-2018 Planned Disposition: Home DCP follow-up note: CM RECEIVED ORDER FOR PORTABLE OXYGEN FOR HOME USE. CM MET WITH PT IN ROOM. CM MET WITH PT IN ROOM TO DISCUSS DISCHARGE NEEDS AND PLANNING. CM DISCUSSED AVAILABILITY OF HOME HEALTH, REHAB SERVICES AND MEDICAL EQUIPMENT. PT DENIES DISCHARGE NEEDS OTHER THAN PORTABLE OXYGEN PT'S SPOUSE TO TRANSPORT HOME AT DISCHARGE. IMPORTANT MESSAGE FROM MEDICARE PROVIDED AND EXPLAINED. CM EXPLAINED THAT PORTABLE OXYGEN WILL BE DELIVED TO HOSPITAL FOR DISCHARGE HOME. PT INFORMED CM THAT HE WANTS PORTABLE CONCENTRATOR INSTEAD OF BOTTLES. CM EXPLAINED THAT CM WILL NOTIFY [facility] BUT IT WILL DEPEND ON INSURANCE. PT REPORTS UNDERSTANDING. CM CALLED [facility], , SPOKE TO ROLAND WHO CHECKED AND NOTIFIED THAT PT IS ALREADY QUALIFIED FOR PORTABLE OXYGEN AND HAD SIX (6) M-6 PORTABLE OXYGEN BOTTLES DELIVERED TO HIS HOME IN September,. MAXIMO INFORMED ROLAND THAT PT WANTS PORTABLE CONCENTRATOR IF POSSIBLE. ROLAND INFORMED CM THAT IS NOT POSSIBLE PT IS MORE THAN 22 MONTHS IN BILLING FOR OXYGEN AND MEDICARE WILL NOT COVER A PORTABLE CONCENTRATOR, ONLY THE BOTTLES. [facility] WILL DELIVER PORTABLE OXYGEN TO PT'S ROOM AND FOLLOW UP WITH PT REGARDING MORE PORTABLE AT HOME. CM NOTIFIED PT IN ROOM THAT HE WILL ONLY GET PORTABLE OXYGEN BOTTLES. PT REPORTS UNDERSTANDING, REPORTS HIS WILL BE PICKING HIM UP. BOOTMAKER HAND NURSE NOTIFIED. Robbin Lee, CASE MANAGEMENT DCP- Discharge Planning Updated by [id number]: Amber Lois on 10/24/18 2:[address] Patient Name: ALISHA GIRON Admission Status: ER Accout number: [id number] Admission Date: 10-23-2018 : 1950 Admission Diagnosis: Attending: GREGORY WOODARD Current LOS: 1 Anticipated DC Date: Planned Disposition: Home Primary Insurance: MEDICARE A & B Discharge Planning Comments: CM met with patient at bedside after obtaining verbal consent. Patient states he plans on returning home after discharge with his . Patient states he will have family transport him home via private vehicle. Patient states that he has a nebulizer and home 02 but doesn't have portable 02. Patient may need walk test for portable 02. CM will continue to follow and assist as needed for discharge planning / needs. Clinical Trial Assistant: Amber Lois DCPIA - Discharge Planning Initial Assessment Updated by [email or web address]: Amber Riverar on 10/24/18 3:38 pm * Is the patient Alert and Oriented? Yes * How many steps to enter\exit or inside your home? * PCP [facility] * [facility] * Preadmission Environment Home with Family * ADLs Independent * Equipment Cane * Other Equipment HOME 02 BUT NO PORTABLE, NEBULIZER * List name and contact numbers for known caregivers / representatives who currently or will assist patient after discharge: XIOMARA GIRON - SPOUSE- [phone], * Verbal permission to speak to the caregivers and representatives has been obtained from the patient. Yes * Community resources currently utilized None * Additional services required to return to the preadmission environment? No * Can the patient safely return to the preadmission environment? Yes * Has this patient been hospitalized within the prior 30 days at any hospital? No Coverage Notice Reviewer: [email or web address] Izabella Lee Notice Issued Date-Time: 10/31/2018 8:55 Notice Type: Patient Choice Letter Notice Delivered To: Patient Relationship to Patient: Pit Slagman Name: Delivery Method: HAND - Hand Delivered Larisa Days: Prior Verbal Notification: Recipient Understood Notice: Yes Recipient Signature: Yes Med Rec Note Co-signed by Attending: Coverage Notice Comment: JORJE Reviewer: [email or web address] Izabella Lee Notice Issued Date-Time: 10/31/2018 8:55 Notice Type: IM Discharge Notice Notice Delivered To: Patient Relationship to Patient: Pit Slagman Name: Delivery Method: HAND - Hand Delivered Larisa Days: Prior Verbal Notification: Recipient Understood Notice: Yes Recipient Signature: Yes Med Rec Note Co-signed by Attending: Coverage Notice Comment: Last DP export: 10/31/18 8:32 a Patient Name: ALISHA GIRON Page 60614 at 1005 All edits/amendments must be made on the electronic document DICTATION DATE: 10/31/18 1004 TEAMCENTER SOLUTION ARCHITECT: ADRIANA 10/31/18 1004 RPT#: [id number] DC DATE: STATUS: ADM IN [facility] [address] [place] [address] END OF REPORT
[2018-10-31 12:39] VITALS: BP 142/57
== END 2018-10-31 16:02 | disposition home or self-care (01) | DRG 286 ==
LOC: D.ER 10:22 → D.M2 11:38 → D.CVICU 11:38 → D.EDHOLD 11:38 → D.CVICU 11:56 → D.M2 10-26 13:17
PROVIDERS: Emergency Medicine; Internal Medicine Interventional Cardiology; ADMIT Family Medicine
PROC: B2151ZZ Fluoroscopy of Left Heart using Low Osmolar Contrast (ICD-10-PCS; 2018-10-23)
PROC: 4A023N7 Measurement of Cardiac Sampling and Pressure, Left Heart, Percutaneous Approach (ICD-10-PCS; 2018-10-23)
PROC: B2111ZZ Fluoroscopy of Multiple Coronary Arteries using Low Osmolar Contrast (ICD-10-PCS; principal; 2018-10-23 11:20)
PROC: 5A1223Z Performance of Cardiac Pacing, Continuous (ICD-10-PCS; 2018-10-23 11:20)
DX: I70.202 Unspecified atherosclerosis of native arteries of extremities, left leg (principal); J18.1 Lobar pneumonia, unspecified organism; J96.21 Acute and chronic respiratory failure with hypoxia; N17.9 Acute kidney failure, unspecified; I70.92 Chronic total occlusion of artery of the extremities; J98.11 Atelectasis; I44.2 Atrioventricular block, complete; F17.200 Nicotine dependence, unspecified, uncomplicated; K04.7 Periapical abscess without sinus; I10 Essential (primary) hypertension; E78.5 Hyperlipidemia, unspecified; I49.8 Other specified cardiac arrhythmias; J43.9 Emphysema, unspecified

== ENCOUNTER → 2018-11-07 10:55 | Outpatient (CLI) | payer MEDICARE, OTHER ==
[2018-10-28 15:41] VITALS: BMI 26.5
[~2018-11-07 10:55] MED LIST changes: +ADVAIR HFA [SP]12 GM INH; +FISH OIL 1,0001 CA1 PO; +NORCO-10 PO; +PLAVIX75 MG PO; +PREDNISONE20 MG PO; +TRELEGY ELLIPTA
== END | disposition home or self-care (01) ==
LOC: D.RAD 11-05 14:45 → D.RT 11-05 15:00
PROVIDERS: ATTEND Internal Medicine Pulmonary Disease
DX: R00.1 Bradycardia, unspecified (principal)

== ENCOUNTER 2018-11-11 08:44 | Inpatient (IN) | payer MEDICARE, OTHER ==
[~2018-11-11] VITALS: Ht 185.4 cm; Wt 84.5 kg
[2018-11-11 09:09] LABS: BASOPHILS 0.1 % (0-2); EOSINOPHILS 0.3 % (0-7); HEMATOCRIT 35.1 % (42.0-54.0); HEMOGLOBIN 11.2 g/dL (13.5-17.5); IMMATURE GRANULOCYTES 0.5 % (0-5); LYMPHOCYTES 7.4 % (15-50); MCHC 31.9 g/dL (31.0-37.0); MCV 94.1 fL (80.0-100.0); MEAN PLATELET VOLUME 9.7 fL (7.4-10.4); MONOCYTES 8.7 % (2-11); PLATELET COUNT 171 10x3/uL (130-400); RBC 3.73 10x6/uL (4.20-6.10); RDW 15.2 % (11.5-14.5); WBC 8.8 10x3/uL (4.8-10.8)
--- NOTE | 2018-11-11 09:10 | NUR ---
PT WAS GIVEN 125 SOLUMEDROL VIA IV AND XOPENEX UPDRAFT BY EMS SPORT SHOE SPIKE ASSEMBLER.
--- NOTE | 2018-11-11 09:11 | NUR ---
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
--- NOTE | 2018-11-11 09:24 | NUR ---
PT TOOK HOME NORVASC AND AMLODIPINE.
[2018-11-11 09:26] LABS: APTT 26.3 SECONDS (22.8-39.4); INR 0.99 (0.85-1.17); PROTIME 12.6 SECONDS (11.6-15.0)
[2018-11-11 09:28] LABS: D-DIMER-QUANTITATIVE 1.1 ug/mLFEU (0.20-0.54)
[2018-11-11 09:31] LABS: ALBUMIN 3.7 g/dL (3.4-5.0); ALKALINE PHOSPHATASE 70 U/L (46-116); ALT (SGPT) 24 U/L (10-68); BILIRUBIN - TOTAL 0.52 mg/dL (0.2-1.3); CALC OSMOLALITY 274 mosm/kg (275-300); CARBON DIOXIDE 29.1 mmol/L (21.0-32.0); CHLORIDE - SERUM 100 mmol/L (98-107); CREATININE - SERUM 1.1 mg/dL (0.6-1.3); GLUCOSE 132 mg/dL (74-106); POTASSIUM - SERUM 3.7 mmol/L (3.5-5.1); PROTEIN - SERUM 6.9 g/dL (6.4-8.2); SODIUM 136 mmol/L (136-145); UREA NITROGEN 15 mg/dL (7-18); eGFR NON AFRICAN AMERICAN 71 mL/min (90-120)
[2018-11-11 09:43] LABS: CKMB 1.3 U/L (0.0-3.6); CREATINE KINASE 57 UL (21-232); PRO BNP 772 pg/mL (0-125)
[2018-11-11 10:09] VITALS: BP 186/77
--- NOTE | 2018-11-11 12:53 | MORECARE ---
CASE MANAGEMENT DISCHARGE SUMMARY PATIENT: ALISHA GIRON UNIT: [id number] ADM DATE: 11/11/18 AGE: 68 : 51 SEX: M ROOM/BED: D.E16 AUTHOR: MERYL WONG PHYSICIAN: REFERRING PHYSICIAN: GREGORY WOODARD MD DATE OF SERVICE: 11/11/18 Discharge Plan Patient Name: ALISHA GIRON [facility] : 1950 Planned Disposition: Anticipated Discharge Date: Discharge Date: Expected LOS: Initial Reviewer: [email or web address] Initial Review Date: 11/11/2018 Generated: 11/11/18 1:53 pm Patient Name: ALISHA GIRON Page 39996 at 1253 All edits/amendments must be made on the electronic document DICTATION DATE: 11/11/18 125 SERVICE AND REPAIR SUPERVISOR: ADRIANA 11/11/18 1252 RPT#: [id number] DC DATE: STATUS: ADM IN [facility] [address] [place] [address] END OF REPORT
--- NOTE | 2018-11-11 13:52 | MORECARE ---
CASE MANAGEMENT DISCHARGE SUMMARY PATIENT: ALISHA GIRON UNIT: [id number] ADM DATE: 11/11/18 AGE: 68 : 51 SEX: M ROOM/BED: D.E16 AUTHOR: MERYL WONG PHYSICIAN: REFERRING PHYSICIAN: GREGORY WOODARD MD DATE OF SERVICE: 11/11/18 Discharge Plan Patient Name: ALISHA GIRON [facility] [facility] 1950 Planned Disposition: Anticipated Discharge Date: Discharge Date: Expected LOS: Initial Reviewer: [email or web address] Initial Review Date: 11/11/2018 Generated: 11/11/18 2:52 pm DCPIA - Discharge Planning Initial Assessment Updated by [id number]: Beatrice Cornell on 11/11/18 1:51 pm * Is the patient Alert and Oriented? No * How many steps to enter\exit or inside your home? 2 w/o rail * PCP Dr. Woodard * Pharmacy [facility] * Preadmission Environment Home with Family * ADLs Independent * Equipment Nebulizer Oxygen * Other Equipment Portable O2 * List name and contact numbers for known caregivers / representatives who currently or will assist patient after discharge: Lynsey Giron (spouse) H [phone] C [phone] * Please name any agencies selected above. [facility] * Additional services required to return to the preadmission environment? No * Can the patient safely return to the preadmission environment? Yes * Has this patient been hospitalized within the prior 30 days at any hospital? Yes Last DP export: 11/11/18 11:53 a Patient Name: ALISHA GIRON Page 88170 at 1352 All edits/amendments must be made on the electronic document DICTATION DATE: 11/11/18 1351 ELECTRIC POWER LINE EXAMINER: ADRIANA 11/11/18 1351 RPT#: [id number] DC DATE: STATUS: ADM IN [facility] [address] [place] [address] END OF REPORT
--- NOTE | 2018-11-11 14:08 | MORECARE ---
CASE MANAGEMENT DISCHARGE SUMMARY PATIENT: ALISHA GIRON UNIT: [id number] ADM DATE: 11/11/18 AGE: 68 : 51 SEX: M ROOM/BED: D.E16 AUTHOR: JUDITHDOC PHYSICIAN: REFERRING PHYSICIAN: GREGORY WOODARD MD DATE OF SERVICE: 11/11/18 Discharge Plan Patient Name: ALISHA GIRON Facility: [facility]:[place] : 1950 Planned Disposition: Anticipated Discharge Date: Discharge Date: Expected LOS: Initial Reviewer: [email or web address] Initial Review Date: 11/11/2018 Generated: 11/11/18 3:08 pm Comments DCP- Discharge Planning Updated by [email or web address]: Beatrice Cornell on 11/11/18 1:[address] CM met with patient and spouse, @bedside in ER to discuss dc plans/needs. Patient is sleeping and answers questions. PCP: Dr. Woodard. Pharmacy: [facility]. DME: [facility]. Home O2, Portable O2, Nebulizer. Emergency contact: Lynsey Giron (spouse) H [phone], C [phone]. Spouse states patient is Independent in his care at home, with her assistance. Denies having HHS. States at this time, she does not require additional services and feels safe returning to his previous environment. Patient was discharged October 31, 2018 from [facility]. CM will assist PRN with dc needs/plans. Beatrice Cornell RN, CM DCPIA - Discharge Planning Initial Assessment Updated by [email or web address]: Beatrice Cornell on 11/11/18 1:51 pm * Is the patient Alert and Oriented? No * How many steps to enter\exit or inside your home? 2 w/o rail * PCP Dr. Woodard * Pharmacy [facility] * Preadmission Environment Home with Family * ADLs Independent * Equipment Nebulizer Oxygen * Other Equipment Portable O2 * List name and contact numbers for known caregivers / representatives who currently or will assist patient after discharge: Lynsey Giron (spouse) [phone] C [phone] * Please name any agencies selected above. [facility] * Additional services required to return to the preadmission environment? No * Can the patient safely return to the preadmission environment? Yes * Has this patient been hospitalized within the prior 30 days at any hospital? Yes Last DP export: 11/11/18 12:52 p Patient Name: ALISHA GIRON Page 02125 at 1408 All edits/amendments must be made on the electronic document DICTATION DATE: 11/11/181407 POST TENSIONING IRONWORKER HELPER: ADRIANA 11/11/181407 RPT#: [id number] DC DATE: STATUS: ADM IN [facility] [address] [place] [address] END OF REPORT
[2018-11-11 15:33] VITALS: BP 144/63
--- NOTE | 2018-11-11 15:34 | NUR ---
PT RESTING, SEMIFOWLERS. RESPIRATIONS EVEN AND UNLABORED. WILL CONTINUE TO MONITOR.
--- NOTE | 2018-11-11 18:27 | NUR ---
RECEIVED PT FROM ER. PT IS AAO X4 AND UP AD TEJAS. RR EVEN AND UNLABORED AT REST ON 4L 02 NC. PIV SALINE LOCKED. PT DENIES ANY NEEDS AT THIS TIME. PT CURRENTLY SITTING ON EDGE OF BED. CALL LIGHT W/I REACH. FAMILY AT BEDSIDE. WILL PASS REPORT AND CONTINUE WITH POC. WILL CTM.
[2018-11-11 18:44] VITALS: BP 144/63; BMI 25.7
--- NOTE | 2018-11-11 19:46 | NUR ---
RESUMING PATIENT CARE. PATIENT IS ALERT AND ORIENTED. SITTING UP IN CHAIR. RESPIRATIONS ARE EVEN AND UNLABORED. NO S/S OF DISTRESS. NO C/O PAIN. DENIES NEEDS AT THIS TIME. CALL LIGHT WITHIN REACH. WILL CPOC.
[2018-11-11 20:05] VITALS: BP 143/78
[2018-11-12 03:47] VITALS: BP 154/33
--- NOTE | 2018-11-12 05:12 | NUR ---
PATIENT RESTING COMFORTABLY IN BED. RESPIRATIONS ARE EVEN AND UNLABORED. 0400 PATIENT REQUESTED A PRN BREATHING TX WHICH WAS ADMINISTERED. NO S/S OF DISTRESS. NO C/O PAIN. CALL LIGHT WITHIN REACH. WILL CPOC.
--- NOTE | 2018-11-12 07:00 | NUR ---
RECEIVED BEDSIDE SHIFT REPORT. ASSUMED CARE OF PATIENT. CALL LIGHT WITHIN REACH. NO DISTRESS. RESP EVEN AND UNLABORED.
[2018-11-12 08:26] VITALS: BP 132/78
[2018-11-12 10:16] LABS: BASOPHILS 0 % (0-2); EOSINOPHILS 0 % (0-7); HEMATOCRIT 36.5 % (42.0-54.0); HEMOGLOBIN 11.6 g/dL (13.5-17.5); IMMATURE GRANULOCYTES 0.3 % (0-5); MCH 30.1 pg (26.0-34.0); MCHC 31.8 g/dL (31.0-37.0); MCV 94.6 fL (80.0-100.0); MEAN PLATELET VOLUME 10.4 fL (7.4-10.4); MONOCYTES 1.9 % (2-11); NEUTROPHILS 92.8 % (40-80); PLATELET COUNT 179 10x3/uL (130-400); RBC 3.86 10x6/uL (4.20-6.10); RDW 15.3 % (11.5-14.5); WBC 6.9 10x3/uL (4.8-10.8)
[2018-11-12 10:26] LABS: ALBUMIN 3.6 g/dL (3.4-5.0); ANION GAP 9.5 mmol/L (8-16); BILIRUBIN - TOTAL 0.46 mg/dL (0.2-1.3); CALCIUM 9.5 mg/dL (8.5-10.1); CARBON DIOXIDE 31.7 mmol/L (21.0-32.0); CREATININE - SERUM 1.1 mg/dL (0.6-1.3); POTASSIUM - SERUM 4.2 mmol/L (3.5-5.1); PROTEIN - SERUM 7.2 g/dL (6.4-8.2)
--- NOTE | 2018-11-12 11:35 | NUR ---
SITTING IN BED READING NEWSPAPER. NO DISTRESS. DIET LEMON CIRCLE PROVIDED UPON REQUEST. REMAINS IN ISOLATION FOR INFLUENZA. CALL LIGHT WITHIN REACH.
[2018-11-12 11:44] VITALS: BP 123/72
[2018-11-12 13:07] VITALS: Ht 185.4 cm; Wt 84.5 kg
[2018-11-12 15:34] VITALS: BP 136/75
--- NOTE | 2018-11-12 17:23 | NUR ---
RESTING IN BED. NO DISTRESS. CALL LIGHT WITHIN REACH.
--- NOTE | 2018-11-12 19:30 | NUR ---
RESP CQALLED FOR TX AT THIS TIME BED IS LOW AND CALL LIGHT IS IN PLACE. DROPLET ISO IS OBSERVED. ALERT AND ORIENTED AND NC AT 3L/NC
[2018-11-12 20:00] VITALS: BP 127/61
[2018-11-12 23:55] VITALS: BP 124/64
[2018-11-13 03:55] VITALS: BP 148/64
--- NOTE | 2018-11-13 04:20 | NUR ---
PATIENT RESTING COMFORTABLY IN BED. RESPIRATIONS ARE EVEN AND UNLABORED. NO S/S OF DISTRESS. NO C/O PAIN. CALL LIGHT WITHIN REACH. WILL CPOC.
[2018-11-13 06:50] LABS: BASOPHILS 0 % (0-2); EOSINOPHILS 0 % (0-7); HEMOGLOBIN 10.8 g/dL (13.5-17.5); IMMATURE GRANULOCYTES 0.4 % (0-5); LYMPHOCYTES 7.4 % (15-50); MCH 29.8 pg (26.0-34.0); MCHC 31.8 g/dL (31.0-37.0); MCV 93.9 fL (80.0-100.0); MEAN PLATELET VOLUME 10.9 fL (7.4-10.4); NEUTROPHILS 87.2 % (40-80); PLATELET COUNT 157 10x3/uL (130-400); RBC 3.62 10x6/uL (4.20-6.10); WBC 7.2 10x3/uL (4.8-10.8)
[2018-11-13 07:07] LABS: ANION GAP 12.5 mmol/L (8-16); CALCIUM 9.1 mg/dL (8.5-10.1); CARBON DIOXIDE 28.9 mmol/L (21.0-32.0); CREATININE - SERUM 1.1 mg/dL (0.6-1.3); POTASSIUM - SERUM 4.4 mmol/L (3.5-5.1)
--- NOTE | 2018-11-13 07:47 | NUR ---
REPORT RECEIEVED. WILL CONTINUE WITH POC. PT CURRENTLY LYING SEMI FOWLERS. CALL LIGHT W/I REACH. PT IS AAO AND UP AD TEJAS. RR EVEN AND UNLABORED ON 3L 02. L.FOR PIV IS SALINE LOCKED. PT DENIES ANY NEEDS AT THIS TIME. NO S/S OF DISTRESS NOTED. WILL CTM.
--- NOTE | 2018-11-13 10:19 | NUR ---
AM MEDICATIONS ADMINISTERED. PT DENIES ANY NEEDS. WILL CTM.
[2018-11-13 10:23] VITALS: BP 166/62
--- NOTE | 2018-11-13 11:27 | NUR ---
PREVIOUS PIV INFILTRATED. SPOKE WITH ABOUT DC'ING SOLU MEDROL R/T BEING ONLY PIV MEDICATION. RECEIVED ORDERS FOR PREDNISONE 20MG BID. WILL PLACE ORDER AND CTM.
--- NOTE | 2018-11-13 11:46 | NUR ---
PIV REMOVED WITH CATHETER TIP FULL INTACT. PREDNISONE ADMINISTERED. WILL CTM.
[2018-11-13 14:36] VITALS: BP 162/64
--- NOTE | 2018-11-13 15:39 | NUR ---
I have reviewed this patient and I concur with the Shift Assessment completed by the Licensed Practical Nurse today this shift.
[2018-11-13 16:59] VITALS: BP 187/72
--- NOTE | 2018-11-13 19:05 | NUR ---
AWAKE AND ALERT WITH CALL LIGHT IN PLACE TX AT THIS TIME. SKIN WARM AND DRY LUNGS ARE CLEAR AT THIS TIME. BED IS LOW WITH CALL LIGHT IN PLACE, PT IS ALERT AND DENIES NEEDS AT THIS TIME
[2018-11-13 20:32] VITALS: BP 163/62
[2018-11-14 00:04] VITALS: BP 155/56
[2018-11-14 06:04] VITALS: BP 128/65
--- NOTE | 2018-11-14 07:30 | NUR ---
RECEIVED A/A/OX4. DENIES ANY PAIN, DISCOMFORT OR SOB. 02 ON PER NC AT 3 L/M WITH RESP EVEN AND UNLABORED. REMAINS IN DROPLET ISOLATION FOR DX OF FLU AND UNDERSTANDS ISOLATION PRECAUTIONS. ASSESSMENT COMPLETED. NO REQUESTS VOICED. PT IS UP AD TEJAS IN ROOM WITH NO PROBLEMS NOTED. STATES HE IS READY TO GET HOME AND HOPES TO BE DISCHARGED TODAY. BED IN LOWEST POSITION, LOCKED AND SIDERAILS UP X 2 WITH CALL LIGHT IN REACH. WILL CONTINUE POC.
[2018-11-14 07:53] VITALS: BP 162/58
[2018-11-14] MEDS ORDERED: TAMIFLU75 MG PO (07:54)
[2018-11-14] MEDS ORDERED: PREDNISONE20 MG PO (07:55)
--- NOTE | 2018-11-14 09:02 | MORECARE ---
CASE MANAGEMENT DISCHARGE SUMMARY PATIENT: ALISHA GIRON UNIT: [id number] ADM DATE: 11/11/18 AGE: 68 : 51 SEX: M ROOM/BED: D.2136 AUTHOR: JUDITH,DOC PHYSICIAN: REFERRING PHYSICIAN: GREGORY WOODARD MD DATE OF SERVICE: 11/14/18 Discharge Plan Patient Name: ALISHA GIRON Facility: [facility]:[place] : 1950 Planned Disposition: Home Anticipated Discharge Date: 11/13/18 Discharge Date: Expected LOS: 2 Initial Reviewer: [id number] Initial Review Date: 11/11/2018 Generated: 11/14/18 10:02 am Comments DCP- Discharge Planning Updated by [email or web address]: Beatrice Cornell on 11/11/18 1:[address] CM met with patient and spouse, @bedside in ER to discuss dc plans/needs. Patient is sleeping and answers questions. PCP: Dr. Woodard. Pharmacy: [facility]. DME: [facility]. Home O2, Portable O2, Nebulizer. Emergency contact: Lynsey Giron (spouse) H [phone], C [phone]. Spouse states patient is Independent in his care at home, with her assistance. Denies having HHS. States at this time, she does not require additional services and feels safe returning to his previous environment. Patient was discharged October 31, 2018 from [facility]. CM will assist PRN with dc needs/plans. Beatrice Cornell RN, CM DCPIA - Discharge Planning Initial Assessment Updated by [email or web address]: Beatrice Cornell on 11/11/18 1:51 pm * Is the patient Alert and Oriented? No * How many steps to enter\exit or inside your home? 2 w/o rail * PCP Dr. Woodard * Pharmacy [facility] * Preadmission Environment Home with Family * ADLs Independent * Equipment Nebulizer Oxygen * Other Equipment Portable O2 * List name and contact numbers for known caregivers / representatives who currently or will assist patient after discharge: Lynsey Giron (spouse) [phone] C [phone] * Please name any agencies selected above. [employer] * Additional services required to return to the preadmission environment? No * Can the patient safely return to the preadmission environment? Yes * Has this patient been hospitalized within the prior 30 days at any hospital? Yes Last DP export: 11/11/18 1:08 p Patient Name: ALISHA GIRON Page 11339 at 0902 All edits/amendments must be made on the electronic document DICTATION DATE: 11/14/18901 FILLING STATION LABORER: ADRIANA 11/14/18901 RPT#: [id number] DC DATE: STATUS: ADM IN [facility] [address] [place] [address] END OF REPORT
[2018-11-14 11:18] VITALS: BP 176/57
--- NOTE | 2018-11-14 12:10 | NUR ---
REVIEWED DISCHARGE INSTRUCTIONS WITH PT AND VERBALIZES UNDERSTANDING WITH NO QUESTIONS. NO IV TO DC. LEFT FLOOR VIA W/C AND LEFT FACILITY VIA PRIVATE VEHICLE WITH HIS .
--- NOTE | 2018-11-14 12:39 | NUR ---
AGREE WITH SCREWHEAD STONER AND POLISHER ASSESSMENT
--- NOTE | 2018-11-15 08:11 | MORECARE ---
CASE MANAGEMENT DISCHARGE SUMMARY PATIENT: ALISHA GIRON UNIT: [id number] ADM DATE: 11/11/18 AGE: 68 : 51 SEX: M ROOM/BED: D.2136 AUTHOR: MERYL WONG PHYSICIAN: REFERRING PHYSICIAN: GREGORY WOODARD MD DATE OF SERVICE: 11/15/18 Discharge Plan Patient Name: ALISHA GIRON Facility: [facility]:[place] : 1950 Planned Disposition: Home Anticipated Discharge Date: 11/13/18 Discharge Date: 11/14/2018 Expected LOS: 2 Initial Reviewer: [id number] Initial Review Date: 11/11/2018 Generated: 11/15/18 9:11 am Comments DCP- Discharge Planning Updated by [id number]: Robbin Lee on 11/15/18 7:[address] Patient Name: ALISHA GIRON Encounter No: [id number] : 1950 Primary Insurance: MEDICARE A & B Anticipated DC Date: 11-13-2018 Planned Disposition: Home LATE ENTRY FROM 11-14-18, 0900: DCP follow-up note: CM MET WITH PT IN ROOM TO DISCUSS DISCHARGE NEEDS AND PLANNING. CM DISCUSSED AVAILABILITY OF HOME HEALTH, REHAB SERVICES AND MEDICAL EQUIPMENT. PT DENIES DISCHARGE NEEDS. SPOUSE TO TRANSPORT HOME AT DISCHARGE. IMPORTANT MESSAGE FROM MEDICARE PROVIDED AND EXPLAINED. Robbin Lee CASE MANAGEMENT DCP- Discharge Planning Updated by [email or web address]: Beatrice Cornell on 11/11/18 1:[address] CM met with patient and spouse, @bedside in ER to discuss dc plans/needs. Patient is sleeping and answers questions. PCP: Dr. Woodard. Pharmacy: [facility], [facility]. DME: [employer]. Home O2, Portable O2, Nebulizer. Emergency contact: Lynsey Giron (spouse) H [phone], C [phone]. Spouse states patient is Independent in his care at home, with her assistance. Denies having HHS. States at this time, she does not require additional services and feels safe returning to his previous environment. Patient was discharged October 31, 2018 from [facility]. CM will assist PRN with dc needs/plans. Beatrice Cornell RN, CM DCPIA - Discharge Planning Initial Assessment Updated by [id number]: Beatrice Cornell on 11/11/18 1:51 pm * Is the patient Alert and Oriented? No * How many steps to enter\exit or inside your home? 2 w/o rail * PCP Dr. Woodard * [facility]acy [facility] * Preadmission Environment Home with Family * ADLs Independent * Equipment Nebulizer Oxygen * Other Equipment Portable O2 * List name and contact numbers for known caregivers / representatives who currently or will assist patient after discharge: Lynsey Giron (spouse) H [phone] C [phone] * Please name any agencies selected above. [facility] * Additional services required to return to the preadmission environment? No * Can the patient safely return to the preadmission environment? Yes * Has this patient been hospitalized within the prior 30 days at any hospital? Yes Coverage Notice Reviewer: [id number] Izabella Lee Notice Issued Date-Time: 11/14/2018 9:00 Notice Type: IM Discharge Notice Notice Delivered To: Patient Relationship to Patient: Divisional Human Resources Director Name: Delivery Method: HAND - Hand Delivered Larisa Days: Prior Verbal Notification: Recipient Understood Notice: Yes Recipient Signature: Yes Med Rec Note Co-signed by Attending: Coverage Notice Comment: Last DP export: 11/14/18 8:02 a Patient Name: ALISHA GIRON Page [phone] at 0811 All edits/amendments must be made on the electronic document DICTATION DATE: 11/15/18809 INSURANCE CLAIMS ASSISTANT: ADRIANA 11/15/1810 RPT#: [id number] DC DATE:11/14/18 STATUS: DIS IN [facility] [address] [place] [address] END OF REPORT
--- NOTE | 2018-11-15 08:18 | MORECARE ---
CASE MANAGEMENT DISCHARGE SUMMARY PATIENT: ALISHA GIRON UNIT: [id number] ADM DATE: 11/11/18 AGE: 68 : 51 SEX: M ROOM/BED: D.2136 AUTHOR: MERYL WONG PHYSICIAN: REFERRING PHYSICIAN: GREGORY WOODARD MD DATE OF SERVICE: 11/15/18 Discharge Plan Patient Name: ALISHA GIRON Facility: [facility]:[place] : 1950 Planned Disposition: Home Anticipated Discharge Date: 11/13/18 Discharge Date: 11/14/2018 Expected LOS: 2 Initial Reviewer: [id number] Initial Review Date: 11/11/2018 Generated: 11/15/18 9:18 am Comments DCP- Discharge Planning Updated by [id number]: Robbin Lee on 11/15/18 7:[address] Patient Name: ALISHA GIRON Encounter No: [id number] : 1950 Primary Insurance: MEDICARE A & B Anticipated DC Date: 11-13-2018 Planned Disposition: Home LATE ENTRY FROM 11-14-18, 0900: DCP follow-up note: CM MET WITH PT IN ROOM TO DISCUSS DISCHARGE NEEDS AND PLANNING. CM DISCUSSED AVAILABILITY OF HOME HEALTH, REHAB SERVICES AND MEDICAL EQUIPMENT. PT DENIES DISCHARGE NEEDS. SPOUSE TO TRANSPORT HOME AT DISCHARGE. IMPORTANT MESSAGE FROM MEDICARE PROVIDED AND EXPLAINED. Robbin Lee CASE MANAGEMENT DCP- Discharge Planning Updated by [id number]: Beatrice Cornell on 11/11/18 1:[address] CM met with patient and spouse, @bedside in ER to discuss dc plans/needs. Patient is sleeping and answers questions. PCP: Dr. Woodard. Pharmacy: [facility], [facility]. DME: [employer]. Home O2, Portable O2, Nebulizer. Emergency contact: Lynsey Giron (spouse) H [phone], C [phone]. Spouse states patient is Independent in his care at home, with her assistance. Denies having HHS. States at this time, she does not require additional services and feels safe returning to his previous environment. Patient was discharged October 31, 2018 from [facility]. CM will assist PRN with dc needs/plans. Beatrice Cornell RN, CM DCPIA - Discharge Planning Initial Assessment Updated by [email or web address]: Beatrice Cornell on 11/11/18 1:51 pm * Is the patient Alert and Oriented? No * How many steps to enter\exit or inside your home? 2 w/o rail * PCP Dr. Woodard * Pharmacy [facility] * Preadmission Environment Home with Family * ADLs Independent * Equipment Nebulizer Oxygen * Other Equipment Portable O2 * List name and contact numbers for known caregivers / representatives who currently or will assist patient after discharge: Lynsey Giron (spouse) H [phone] C [phone] * Please name any agencies selected above. [facility] * Additional services required to return to the preadmission environment? No * Can the patient safely return to the preadmission environment? Yes * Has this patient been hospitalized within the prior 30 days at any hospital? Yes Coverage Notice Reviewer: [id number] Izabella Lee Notice Issued Date-Time: 11/14/2018 9:00 Notice Type: IM Discharge Notice Notice Delivered To: Patient Relationship to Patient: Patient Services Representative Name: Delivery Method: HAND - Hand Delivered Larisa Days: Prior Verbal Notification: Recipient Understood Notice: Yes Recipient Signature: Yes Med Rec Note Co-signed by Attending: Coverage Notice Comment: Last DP export: 11/15/18 7:11 a Patient Name: ALISHA GIRON Page [phone] at 0818 All edits/amendments must be made on the electronic document DICTATION DATE: 11/15/18816 LEARN TO SWIM INSTRUCTOR: ADRIANA 11/15/18816 RPT#: [id number] DC DATE:11/14/18 STATUS: DIS IN [facility] [address] [place] [address] END OF REPORT
== END 2018-11-14 13:40 | disposition home or self-care (01) | DRG 192 ==
LOC: D.ER 08:44 → D.EDHOLD 11:18 → D.M2 11:18
PROVIDERS: Family Medicine; ADMIT Family Medicine; ATTEND Family Medicine
DX: J43.9 Emphysema, unspecified (principal); J10.1 Influenza due to other identified influenza virus with other respiratory manifestations; E11.51 Type 2 diabetes mellitus with diabetic peripheral angiopathy without gangrene; I10 Essential (primary) hypertension; Z86.73 Personal history of transient ischemic attack (TIA), and cerebral infarction without residual deficits

== ENCOUNTER 2019-03-11 14:33 | Emergency (ER) | payer MEDICARE, OTHER ==
[~2019-03-11] VITALS: Ht 185.4 cm; Wt 85.9 kg
[~2019-03-11 14:33] MED LIST changes: +TAMIFLU75 MG PO
[2019-03-11 14:52] VITALS: Ht 185.4 cm; Wt 85.9 kg
[2019-03-11 15:56] LABS: BASOPHILS 0.3 % (0-2); EOSINOPHILS 1.1 % (0-7); HEMATOCRIT 36.2 % (42.0-54.0); HEMOGLOBIN 11.8 g/dL (13.5-17.5); IMMATURE GRANULOCYTES 0.4 % (0-5); LYMPHOCYTES 21.1 % (15-50); MCH 29.8 pg (26.0-34.0); MCHC 32.6 g/dL (31.0-37.0); MCV 91.4 fL (80.0-100.0); MEAN PLATELET VOLUME 10.6 fL (7.4-10.4); MONOCYTES 9.6 % (2-11); NEUTROPHILS 67.5 % (40-80); PLATELET COUNT 190 10x3/uL (130-400); RBC 3.96 10x6/uL (4.20-6.10); RDW 13.9 % (11.5-14.5); WBC 7.2 10x3/uL (4.8-10.8)
[2019-03-11 16:09] LABS: INR 0.92 (0.85-1.17); PROTIME 11.8 SECONDS (11.6-15.0)
[2019-03-11 16:23] LABS: ALBUMIN 4.2 g/dL (3.4-5.0); ANION GAP 11.7 mmol/L (8-16); BILIRUBIN - TOTAL 0.45 mg/dL (0.2-1.3); CALCIUM 9.2 mg/dL (8.5-10.1); CARBON DIOXIDE 29.9 mmol/L (21.0-32.0); CREATININE - SERUM 1.4 mg/dL (0.6-1.3); POTASSIUM - SERUM 3.6 mmol/L (3.5-5.1); PROTEIN - SERUM 7.7 g/dL (6.4-8.2)
[2019-03-11 17:21] VITALS: BP 172/67
== END 2019-03-11 17:22 | disposition home or self-care (01) ==
LOC: D.ER 14:33
PROVIDERS: Family Medicine
DX: R22.42 Localized swelling, mass and lump, left lower limb (principal)

== ENCOUNTER 2020-03-28 18:18 | Inpatient (IN) | payer MEDICARE, OTHER ==
[~2020-03-28] VITALS: Ht 185.4 cm; Wt 93.2 kg
[2020-03-28 18:57] LABS: BASOPHILS 0.3 % (0-2); EOSINOPHILS 0.5 % (0-7); HEMATOCRIT 36.1 % (42.0-54.0); HEMOGLOBIN 11.7 g/dL (13.5-17.5); IMMATURE GRANULOCYTES 0.2 % (0-5); LYMPHOCYTES 22.8 % (15-50); MCH 30.5 pg (26.0-34.0); MCHC 32.4 g/dL (31.0-37.0); MEAN PLATELET VOLUME 9.7 fL (7.4-10.4); MONOCYTES 9.8 % (2-11); NEUTROPHILS 66.4 % (40-80); PLATELET COUNT 158 10x3/uL (130-400); RBC 3.84 10x6/uL (4.20-6.10); RDW 14.6 % (11.5-14.5); WBC 5.9 10x3/uL (4.8-10.8)
--- NOTE | 2020-03-28 19:05 | NUR ---
PT LEFT FOR ORDERED CT AT THIS TIME VIA WHEELCHAIR.
[2020-03-28 19:06] LABS: CALC OSMOLALITY 273 mosm/kg (275-300); CHLORIDE - SERUM 102 mmol/L (98-107); CREATININE - SERUM 1.8 mg/dL (0.6-1.3); GLUCOSE 139 mg/dL (74-106); SODIUM 135 mmol/L (136-145); UREA NITROGEN 18 mg/dL (7-18); eGFR NON AFRICAN AMERICAN 40 mL/min (90-120)
[2020-03-28 19:07] LABS: APTT 27.6 SECONDS (22.8-39.4); INR 0.99 (0.85-1.17)
[2020-03-28 19:22] LABS: ALBUMIN 3.8 g/dL (3.4-5.0); ALKALINE PHOSPHATASE 81 U/L (30-120); ALT (SGPT) 30 U/L (10-68); BILIRUBIN - TOTAL 0.51 mg/dL (0.2-1.3); CKMB 0.9 U/L (0.0-3.6); CREATINE KINASE 102 UL (21-232); MAGNESIUM - SERUM 1.9 mg/dL (1.8-2.4)
[2020-03-28 19:23] LABS: TROPONIN-I < 0.017 ng/mL (0.000-0.060)
[2020-03-28 20:12] LABS: BILIRUBIN NEGATIVE (NEGATIVE); GLUCOSE NEGATIVE (NEGATIVE); KETONE NEGATIVE (NEGATIVE); NITRITE NEGATIVE (NEGATIVE); SPECIFIC GRAVITY 1.015 (1.005-1.020); UROBILINOGEN NORMAL (NORMAL)
[2020-03-28] MEDS ORDERED: LEXAPRO10 MG PO (21:46)
[2020-03-28 21:50] VITALS: BP 166/67
[2020-03-29 00:33] VITALS: BP 150/58
[2020-03-29 04:14] VITALS: BP 155/62
[2020-03-29 07:32] VITALS: BP 166/67; BMI 26.7
[2020-03-29 07:43] VITALS: Ht 185.4 cm; Wt 93.2 kg
--- NOTE | 2020-03-29 09:51 | NUR ---
PT AWAKE AND ORIENTED, LYING IN BED WHEN I ENTERED. TOOK ALL PO MEDICATIONS WITHOUT COMPLICATIONS. I/V HOOKED UP FOR FLUIDS. AT BEDSIDE. ALL QUESTIONS ANSWERED TO THE BEST OF MY ABILITY. PT TOLERATING O2 WELL, REPORTS NO DIZZYNESS AT THIS TIME. CL IN REACH, SRX2.
[2020-03-29 10:33] VITALS: BP 156/68
[2020-03-29 14:24] VITALS: BP 162/68
--- NOTE | 2020-03-29 17:42 | NUR ---
I have reviewed this patient and I concur with the Shift Assessment completed by the Licensed Practical Nurse today this shift.
--- NOTE | 2020-03-29 19:15 | NUR ---
RECEIVED REPORT, WILL ASSUME CARE OF PT, DENIES ANY NEEDS AT THIS TIME, AT BEDSIDE, BED IS LOW, SRX2, CALL LIGHT IN REACH, WILL CONTINUE PLAN OF CARE
--- NOTE | 2020-03-29 19:30 | NUR ---
PT SITTING UP IN BED, ALERT AND ORIENTED. REPORTS NO DIZZINESS TODAY. CALL LIGHT AT SIDE. PT REPORTS NO CONCERNS AT THIS TIME.
[2020-03-30 00:33] VITALS: BP 160/58
[2020-03-30 05:51] VITALS: BP 156/64
--- NOTE | 2020-03-30 07:20 | NUR ---
RECIEVE REPORT. ALERT AND ORIENTED X4. SITTING UP IN BED. DENIES ANY NEEDS. CONTINUE PLAN OF CARE AND SAFETY PRECAUTIONS.
[2020-03-30 09:24] VITALS: BP 157/63
[2020-03-30 10:44] LABS: CALCIUM 8.7 mg/dL (8.5-10.1); CARBON DIOXIDE 26.3 mmol/L (21.0-32.0); CHLORIDE - SERUM 105 mmol/L (98-107); POTASSIUM - SERUM 4.6 mmol/L (3.5-5.1); SODIUM 140 mmol/L (136-145); eGFR NON AFRICAN AMERICAN 79 mL/min (90-120)
[2020-03-30 10:49] LABS: CALC OSMOLALITY 285 mosm/kg (275-300); GLUCOSE 220 mg/dL (74-106); UREA NITROGEN 12 mg/dL (7-18)
[2020-03-30 18:00] VITALS: BP 148/58
--- NOTE | 2020-03-30 19:21 | MORECARE ---
CASE MANAGEMENT DISCHARGE SUMMARY PATIENT: ALISHA GIRON UNIT: [id number] ADM DATE: 03/29/20 AGE: 69 : 51 SEX: M ROOM/BED: D.5131 AUTHOR: MERYL WONG PHYSICIAN: REFERRING PHYSICIAN: GREGORY WOODARD MD DATE OF SERVICE: 03/30/20 Discharge Plan Patient Name: ALISHA GIRON Facility: [facility]:[place] : 1950 Planned Disposition: Home Anticipated Discharge Date: Discharge Date: Expected LOS: Initial Reviewer: [email or web address] Initial Review Date: 03/28/2020 Generated: 03/30/20 8:21 pm Comments DCP- Discharge Planning Updated by [id number]: Joceline Black on 03/30/20 6:[address] Patient Name: ALISHA GIRON Admission Status: ER Accout number: [id number] Admission Date: 03-29-2020 : 1950 Admission Diagnosis:SYNCOPE AND COLLAPSE Attending: GREGORY WOODARD Current LOS: 1 Anticipated DC Date: Planned Disposition: Primary Insurance: MEDICARE A & B Discharge Planning Comments: CM met with patient to complete initial dc planning assessment. CM educated patient on the CM role and verbal consent given by patient to complete assessment. CM verified patient's address, phone number, and emergency contact phone numbers. Patient lives at home with his who is at bedside. At discharge patient plans to return home and feels this is a safe discharge. CM discussed availability of home health, rehab services, and medical equipment. Patient states he has a home and portable oxygen with [employer], and he has a portable tank with him at bedside. He gets his Rx filled at [facility]. AUREA signed for resumption of [employer]. Patient denied known discharge needs at this time. Declination signed for Home Health. Transportation provider at discharge will be his Lynsey. CM will continue to follow and will assist as needed with dc plans/needs. Wrapping Machine Helper: Joceline Black DCPIA - Discharge Planning Initial Assessment Updated by [id number]: Joceline Black on 03/30/20 7:18 pm * Is the patient Alert and Oriented? Yes * How many steps to enter\exit or inside your home? 0/0 * PCP Guido * [facility] * Preadmission Environment Home with Family * ADLs Independent * Equipment Nebulizer Oxygen * Other Equipment [employer] * List name and contact numbers for known caregivers / representatives who currently or will assist patient after discharge: Lynsey [phone] * Verbal permission to speak to the caregivers and representatives has been obtained from the patient. Yes * Community resources currently utilized None * Additional services required to return to the preadmission environment? No * Can the patient safely return to the preadmission environment? Yes * Has this patient been hospitalized within the prior 30 days at any hospital? No Coverage Notice Reviewer: [id number] Izabella Black Notice Issued Date-Time: 03/29/2020 10:30 Notice Type: Medicare Outpatient Observation Notice Notice Delivered To: Patient Relationship to Patient: Medical Supply Technician Name: Delivery Method: HAND - Hand Delivered Larisa Days: Prior Verbal Notification: Recipient Understood Notice: Yes Recipient Signature: Yes Med Rec Note Co-signed by Attending: Coverage Notice Comment: MENDOZA SERVED, EXPLAINED, AND SIGNED BY PATIENT. THE ORIGINAL WAS PROVIDED TO THE PATIENT AND COPY PLACED ON CHART Reviewer: [email or web address] Izabella Black Notice Issued Date-Time: 03/30/2020 14:00 Notice Type: Patient Choice Letter Notice Delivered To: Patient Relationship to Patient: Medical Supply Technician Name: Delivery Method: HAND - Hand Delivered Larisa Days: Prior Verbal Notification: Recipient Understood Notice: Yes Recipient Signature: Yes Med Rec Note Co-signed by Attending: Coverage Notice Comment: RESUME [facility] FOR HOME AND PORTABLE OXYGEN. DECLINATION SIGNED FOR Patient Name: ALISHA GIRON Page 34099 at 1921 All edits/amendments must be made on the electronic document DICTATION DATE: 03/30/201920 INTERNET DEVELOPER: ADRIANA 03/30/201920 RPT#: [id number] DC DATE: STATUS: ADM IN [facility] [address] [place] [address] END OF REPORT
--- NOTE | 2020-03-31 17:28 | MORECARE ---
CASE MANAGEMENT DISCHARGE SUMMARY PATIENT: ALISHA GIRON UNIT: [id number] ADM DATE: 03/29/20 AGE: 69 : 51 SEX: M ROOM/BED: D.5798 AUTHOR: MERYL WONG PHYSICIAN: REFERRING PHYSICIAN: GREGORY WOODARD MD DATE OF SERVICE: 03/31/20 Discharge Plan Patient Name: ALISHA GIRON Facility: [facility]:[place] : 1950 Planned Disposition: Home Anticipated Discharge Date: Discharge Date: 03/30/2020 Expected LOS: Initial Reviewer: [id number] Initial Review Date: 03/28/2020 Generated: 03/31/20 6:27 pm Comments DCP- Discharge Planning Updated by [email or web address]: Joceline Black on 03/30/20 6:[address] Patient Name: ALISHA GIRON Admission Status: ER Accout number: [id number] Admission Date: 03-29-2020 : 1950 Admission Diagnosis:SYNCOPE AND COLLAPSE Attending: GREGORY WOODARD Current LOS: 1 Anticipated DC Date: Planned Disposition: Primary Insurance: MEDICARE A & B Discharge Planning Comments: CM met with patient to complete initial dc planning assessment. CM educated patient on the CM role and verbal consent given by patient to complete assessment. CM verified patient's address, phone number, and emergency contact phone numbers. Patient lives at home with his who is at bedside. At discharge patient plans to return home and feels this is a safe discharge. CM discussed availability of home health, rehab services, and medical equipment. Patient states he has a home and portable oxygen with [employer], and he has a portable tank with him at bedside. He gets his Rx filled at [facility]. AUREA signed for resumption of [employer]. Patient denied known discharge needs at this time. Declination signed for Home Health. Transportation provider at discharge will be his Lynsey. CM will continue to follow and will assist as needed with dc plans/needs. Bag Bundler: Joceline Black DCPIA - Discharge Planning Initial Assessment Updated by [email or web address]: Joceline Black on 03/30/20 7:18 pm * Is the patient Alert and Oriented? Yes * How many steps to enter\exit or inside your home? 0/0 * PCP Guido * [facility] * Preadmission Environment Home with Family * ADLs Independent * Equipment Nebulizer Oxygen * Other Equipment [employer] * List name and contact numbers for known caregivers / representatives who currently or will assist patient after discharge: Lynsey [phone] * Verbal permission to speak to the caregivers and representatives has been obtained from the patient. Yes * Community resources currently utilized None * Additional services required to return to the preadmission environment? No * Can the patient safely return to the preadmission environment? Yes * Has this patient been hospitalized within the prior 30 days at any hospital? No Coverage Notice Reviewer: [id number] Izabella Black Notice Issued Date-Time: 03/29/2020 10:30 Notice Type: Medicare Outpatient Observation Notice Notice Delivered To: Patient Relationship to Patient: Team Member Name: Delivery Method: HAND - Hand Delivered Larisa Days: Prior Verbal Notification: Recipient Understood Notice: Yes Recipient Signature: Yes Med Rec Note Co-signed by Attending: Coverage Notice Comment: MENDOZA SERVED, EXPLAINED, AND SIGNED BY PATIENT. THE ORIGINAL WAS PROVIDED TO THE PATIENT AND COPY PLACED ON CHART Reviewer: [id number] Izabella Black Notice Issued Date-Time: 03/30/2020 14:00 Notice Type: Patient Choice Letter Notice Delivered To: Patient Relationship to Patient: Team Member Name: Delivery Method: HAND - Hand Delivered Larisa Days: Prior Verbal Notification: Recipient Understood Notice: Yes Recipient Signature: Yes Med Rec Note Co-signed by Attending: Coverage Notice Comment: RESUME [facility] FOR HOME AND PORTABLE OXYGEN. DECLINATION SIGNED FOR HH Last DP export: 03/30/20 6:21 p Patient Name: ALISHA GIRON Page 20254 at 1728 All edits/amendments must be made on the electronic document DICTATION DATE: 03/31/201726 BEHAVIORAL TECHNICIAN: ADRIANA 03/31/201726 RPT#: [id number] DC DATE:03/30/20 STATUS: DIS IN [facility] [address] [place] [address] END OF REPORT
== END 2020-03-30 20:44 | disposition home or self-care (01) | DRG 312 ==
LOC: D.ER 18:18 → D.M2 20:12 → OBSVTIME 20:40 → D.M2 21:43
PROVIDERS: Emergency Medicine; ADMIT Family Medicine; ATTEND Family Medicine
DX: R55 Syncope and collapse (principal); N28.9 Disorder of kidney and ureter, unspecified; Z99.81 Dependence on supplemental oxygen; I10 Essential (primary) hypertension; J43.9 Emphysema, unspecified; I49.8 Other specified cardiac arrhythmias; I25.10 Atherosclerotic heart disease of native coronary artery without angina pectoris; Z86.73 Personal history of transient ischemic attack (TIA), and cerebral infarction without residual deficits

== ENCOUNTER → 2020-04-06 10:28 | Outpatient (CLI) | payer MEDICARE, OTHER ==
[2020-03-29 07:43] VITALS: BMI 27.1
[~2020-04-06 10:28] MED LIST changes: +LEXAPRO10 MG PO
== END | disposition home or self-care (01) ==
LOC: D.LAB 10:28
PROVIDERS: ATTEND Internal Medicine Pulmonary Disease
DX: Z11.59 Encounter for screening for other viral diseases (principal)

== ENCOUNTER → 2020-04-08 07:47 | Outpatient (CLI) | payer MEDICARE, OTHER ==
[2020-03-29 07:43] VITALS: BMI 27.1
== END | disposition home or self-care (01) ==
LOC: D.RT 07:47
PROVIDERS: ATTEND Internal Medicine Pulmonary Disease
DX: J44.9 Chronic obstructive pulmonary disease, unspecified (principal); Z11.59 Encounter for screening for other viral diseases

== ENCOUNTER → 2020-10-28 15:35 | Outpatient (CLI) | payer MEDICARE, OTHER ==
[2020-09-27 14:30] VITALS: BMI 26.7
[~2020-10-28 15:35] MED LIST changes: +CYMBALTA30 MG PO; +MEDROL DOSE PACK4 MG PO; +PRAVASTATIN SOD10 MG PO; +ZITHROMAX250 MG PO
== END | disposition home or self-care (01) ==
LOC: D.RT 15:30
PROVIDERS: ATTEND Internal Medicine Pulmonary Disease
DX: J44.9 Chronic obstructive pulmonary disease, unspecified (principal)

== ENCOUNTER → 2020-11-26 11:50 | Outpatient (CLI) | payer MEDICARE, OTHER ==
[2020-09-27 14:30] VITALS: BMI 26.7
== END | disposition home or self-care (01) ==
LOC: D.RT 09:30
PROVIDERS: ATTEND Internal Medicine Pulmonary Disease
DX: J44.9 Chronic obstructive pulmonary disease, unspecified (principal)

== ENCOUNTER → 2020-12-10 07:51 | Outpatient (CLI) | payer MEDICARE, OTHER ==
[2020-09-27 14:30] VITALS: BMI 26.7
--- NOTE | 2020-12-12 09:56 | ST ---
PATIENT:ALISHA GIRON MEDICAL RECORD: [id number] SEX: M LOCATION:[facility] ORDER #: ADMISSION DATE: 12/10/20 AGE OF PATIENT: 70 REFERRING PHYSICIAN: INTERPRETING PHYSICIAN: SHERI LIMA MD DATE OF SERVICE: 12/10/2020 NUCLEAR STRESS TEST GATED: Gait is normal. Normal wall motion. Normal EF. Calculated EF 68%. SPECT IMAGING: SPECT imaging was performed. FINDINGS: 1. Short axis view: Short axis view shows good uptake along the anterior wall, lateral wall, and inferior wall. 2. Horizontal axis: Horizontal axis confirms good uptake along the anterior wall and inferior wall. 3. Vertical axis: Vertical axis shows good uptake along the lateral wall and septum. FINAL IMPRESSION: 1. Normal gated. Normal wall motion. EF 68%. 2. Normal SPECT imaging. The scan is felt low risk for ongoing myocardial ischemia or previous myocardial infarction. LV function remains normal. Continued medical management. Risk factor modification is recommended. TRANSINT:[id number] Voice Confirmation ID: [id number] DOCUMENT ID: [id number] SHERI LIMA MD at 0956 CC: [id number] DICTATION DATE: 12/11/20 1144 LITHOGRAPHING MACHINE OPERATOR: 12/11/20 2357 DEP CLI 12/10/[address] [address]
== END | disposition home or self-care (01) ==
LOC: D.HCCARDIO 07:51
PROVIDERS: ATTEND Internal Medicine Interventional Cardiology
DX: I20.9 Angina pectoris, unspecified (principal)